=== PATIENT | male | born 1955 | race Caucasian/White ===

== ENCOUNTER 2024-07-13 08:18 | Inpatient (IN) | payer OTHER ==
[~2024-07-13] VITALS: Ht 177.8 cm; Wt 113.6 kg
[2024-07-13] VITALS (12 sets, daily range): BP systolic 107–123; BP diastolic 59–81; PULSE 95–149; RESP 19–30; TEMP 98–98.9; O2SAT 93–97
[2024-07-13] MEDS: SODIUM CHLORIDE 0.9% 1,000 ML IV ONE ×3 (09:00→11:56)
[2024-07-13] MEDS: ONDANSETRON HCL 4 MG/2 ML VIAL IV ONE (09:02)
[2024-07-13] MEDS: MORPHINE SULFATE 4 MG/ML SYR/VIAL IV ONE (09:03)
[2024-07-13 09:27] LABS: Urine Bacteria FEW /hpf (None Seen); Urine Blood 2+ /uL (Negative); Urine Clarity Clear (Clear); Urine Color Yellow (Yellow); Urine Mucus FEW (None Seen); Urine Protein, UAD 1+ (Negative); Urine Specific Gravity 1.031 (1.001-1.035); Urine Squamous Epithelial Cell FEW /hpf (<5); Urine Urobilinogen Normal (Negative); Urine WBC 3 /HPF (0-3); Urine pH 5.5 (5.0-9.0)
--- NOTE | 2024-07-13 09:31 | ED.PDOC ---
GI ASSESSMENT HPI Comments 69 y/o M, with PMHX of HTN presents to the ED for CC of abdominal pain. Patient states, that he has been experiencing abdominal pain with associated body-aches and tremors since 0500 this morning (07/13/24). Patient denies nausea, vomiting, diarrhea, melena, chills, fatigue, or weakness. No other associated symptoms, modifiers, recent injuries or sick contacts at this time. Chief Complaint: Abdominal Pain Time Seen by MD: 09:00 Reviewed Notes: Nurses Notes, Medications, Allergies Allergies: Uncoded Allergies: SULFA (Allergy, Unknown, 07/13/24) Information Source: Patient Mode of Arrival: Wheelchair Timing: Hours Duration: Since onset Prehospital treatment: None Quality: None Vomitus: None Stool: Normal Severity: Moderate Recent: None Recent Hx of: None Pain Location: RLQ Modifying Factors: Nothing Associated sign and symptoms: None Past Medical History PAST MEDICAL HISTORY: HTN Surgical History (Other): RIGHT KNEE Family History Family History: Unknown Social History Smoker: Non-Smoker Alcohol: Denies ETOH Use Drugs: Denies Drug Use Lives In: Home Constitutional: denies: chills, diaphoresis, fatigue, fever, malaise, sweats, weakness, others EENTM: denies: blurred vision, double vision, ear bleeding, ear discharge, ear drainage, ear pain, ear ringing, eye pain, eye redness, hearing loss, mouth pain, mouth swelling, nasal discharge, nose bleeding, nose congestion, nose pain, photophobia, tearing, throat pain, throat swelling, voice changes, others Respiratory: denies: cough, hemoptysis, orthopnea, SOB at rest, shortness of breath, SOB with excertion, stridor, wheezing, others Cardiovascular: denies: chest pain, dizzy spells, diaphoresis, Dyspnea on exertion, edema, irregular heart beat, left arm pain, lightheadedness, palpitations, PND, syncope, others Gastrointestinal: reports: abdominal pain; denies: abdomen distended, blood streaked bowels, constipated, diarrhea, dysphagia, difficulty swallowing, hematemesis, melena, nausea, poor appetite, poor fluid intake, rectal bleeding, rectal pain, vomiting, others Genitourinary: denies: burning, dysuria, flank pain, frequency, hematuria, incontinence, penile discharge, penile sore, pain, testicle pain, testicle swelling, urgency, others Neurological: reports: tremors; denies: dizziness, fainting, headache, left sided numbness, left sided weakness, numbness, paresthesia, pre-existing de ficit, right sided numbness, right sided weakness, seizure, speech problems, tingling, weakness, others Musculoskeletal: denies: back pain, gout, joint pain, joint swelling, muscle pain, muscle stiffness, neck pain, others Integumetry: denies: bruises, change in color, change in hair/nails, dryness, laceration, lesions, lumps, rash, wounds, others Allergic/Immunocompromised: denies: Difficulty Healing, Frequent Infections, Hives, Itching, others Hematologic/Lymphatic: denies: anemia, blood clots, easy bleeding, easy bruising, swollen glands, others Endocrine: denies: excessive hunger, excessive sweating, excessive thirst, excessive urination, flushing, intolerance to cold, intolerance to heat, unexplained weight gain, unexplained weight loss, others Psychiatric: denies: anxiety, bipolar disorder, depression, hopeless, panic disorder, schizophrenia, sleepless, suicidal, others All Other Systems: Reviewed and Negative Physical Exam General Appearance: Moderate Distress HEENT: Normal ENT Inspection, Pharynx Normal, TMs Normal Neck: Full Range of Motion, Non-Tender, Normal, Normal Inspection Respiratory: Chest Non-Tender, Lungs Clear, No Accessory Muscle Use, No Respiratory Distress, Normal Breath Sounds Cardiovascular: No Edema, No JVD, No Murmur, No Gallop, Normal Peripheral Pulses, Regular Rate/Rhythm Breast Exam: Deferred Gastrointestinal: Distended Genitalia: Deferred Pelvic: Deferred Rectal: Deferred Extremities: No calf tenderness, Normal range of motion, Non-tender Musculoskeletal : Apperance: Normal Neurologic: Alert, No Motor Deficits, No Sensory Deficits Cerebellar Function: NOT DONE Reflexes: NOT DONE Skin: Normal Color Peripheral Pulses: 3+ Radial (R), 3+ Radial (L) Lymphatic: No Adenopathy Was a procedure done? Was a procedure done?: No GI differential Dx Differential Diagnosis: Cholangitis, Cholecystitis, Constipation, Esophagitis, Gastritis/PUD, Gastroenteritis, Electrolyte Imbalance, Food Poisoning, Bacterial, Viral X-Ray, Labs, Meds, VS Vital Signs Date Time Temp Pulse Resp B/P (MAP) Pulse Ox O2 Delivery O2 Flow Rate FiO2 07/13/24 12:00 135 07/13/24 09:46 152 07/13/24 09:35 99.0 152 19 132/60 (84) 95 99.0 07/13/24 09:33 152 18 132/60 07/13/24 09:03 149 19 135/89 07/13/24 08:48 149 19 95 Room Air* 0 21 07/13/24 08:48 99.0 149 19 135/89 (104) 95 99.0 07/13/24 08:38 141 07/13/24 08:30 99.9 146 25 135/85 (102) 97 99.9 Lab Test 07/13/24 11:15 07/13/24 09:17 07/13/24 08:47 Range/Units Lactic Acid Level 1.7 0.4-2.0 mmol/L White Blood Count 7.7 4.4-10.8 10^3/uL Red Blood Count 5.61 4.5-5.90 10^6/uL Hemoglobin 17.1 13.5-17.5 g/dL Hematocrit 50.9 41.0-53.0 % Mean Corpuscular Volume 90.8 80.0-100.0 fL Mean Corpuscular Hemoglobin 30.4 28.0-32.0 pg Mean Corpuscular Hemoglobin Concent 33.5 32.0-36.0 g/dL Red Cell Distribution Width 14.5 H 11.8-14.3 % Platelet Count 149 140-450 10^3/uL Mean Platelet Volume 8.2 6.9-10.8 fL Neutrophils (%) (Auto) 88.7 H 37.0-80.0 % Lymphocytes (%) (Auto) 8.3 L 10.0-50.0 % Monocytes (%) (Auto) 2.4 0.0-12.0 % Eosinophils (%) (Auto) 0.1 0.0-7.0 % Basophils (%) (Auto) 0.5 0.0-2.0 % Neutrophils # (Auto) 6.9 1.6-8.6 10 ^3/uL Lymphocytes # (Auto) 0.6 0.4-5.4 10 ^3/uL Monocytes # (Auto) 0.2 0-1.3 10 ^3/uL Eosinophils # (Auto) 0 0-0.8 10 ^3/uL Basophils # (Auto) 0 0-0.2 10 ^3/uL Nucleated Red Blood Cells 0.1 % Sodium Level 140 136-145 mmol/L Potassium Level 4.5 3.5-5.1 mmol/L Chloride Level 105 98-107 mmol/L Carbon Dioxide Level 24 20-31 mmol/L Anion Gap 11 5-15 Blood Urea Nitrogen 24 H 9-23 mg/dL Creatinine 1.44 H 0.700-1.30 mg/dL Glomerular Filtration Rate Calc 53 >90 mL/min BUN/Creatinine Ratio 16.7 10.0-20.0 Serum Glucose 141 H 74-106 mg/dL Calcium Level 9.4 8.7-10.4 mg/dL Urine Color Yellow Yellow Urine Clarity Clear Clear Urine pH 5.5 5.0-9.0 Urine Specific [place] 1.031 1.001-1.035 Urine Protein 1+ H Negative Urine Ketones 1+ H Negative Urine Blood 2+ H Negative /uL Urine Nitrite Negative Negative Urine Bilirubin Negative Negative Urine Urobilinogen Normal Negative mg/dL Urine Leukocyte Esterase Negative Negative /uL Urine RBC 27 0 - 3 /hpf Urine Microscopic WBC 3 0-3 /HPF Urine Squamous Epithelial Cells Few <5 /hpf Urine Bacteria Few H None Seen /hpf Urine Mucus Few None Seen Urine Glucose Trace Normal mg/dL Current Medications Medications (Trade) Dose Ordered Sig/Danish Route Start Time Stop Time Status Last Admin Morphine Sulfate 4 mg ONCE ONCE IV 07/13/24 09:00 07/13/24 09:01 DC 07/13/24 09:03 Ondansetron HCl (Zofran) 4 mg ONCE ONCE IV 07/13/24 09:00 07/13/24 09:01 DC 07/13/24 09:02 Sodium Chloride 1,000 ml @ 1,000 mls/hr Q1H ONCE IV 07/13/24 09:00 07/13/24 09:59 DC 07/13/24 09:00 Ceftriaxone Sodium 50 ml @ 100 mls/hr ONCE ONCE IV 07/13/24 11:00 07/13/24 11:29 DC 07/13/24 11:26 Metronidazole 100 ml @ 100 mls/hr ONCE ONCE IV 07/13/24 11:00 07/13/24 11:59 DC 07/13/24 11:55 Sodium Chloride 1,000 ml @ 1,000 mls/hr Q1H ONCE IV 07/13/24 11:00 07/13/24 11:59 DC 07/13/24 11:24 Sodium Chloride 1,000 ml @ 150 mls/hr Q6H40M ONCE IV 07/13/24 11:00 07/13/24 17:39 07/13/24 11:56 Patient alert. Came in because of abdominal pain. Has ketones in his urine. Establish intravenous access. Was given fluids. Was given morphine. Was given Zofran. Continues to be tachycardic. Blood sugar elevated. Possible colitis. Was given Rocephin. Was given Flagyl. Reviewed his history. Explained to the patient. Continue cardiac monitoring. EKG reviewed does not show any acute changes. Time of 1ST Reevaluation: 09:30 Reevaluation 1ST: Unchanged Patient Education/Counseling: Diagnosis, Treatment Family Education/Counseling: No Family Present Departure 1 Departure Time of Disposition: 10:46 Impression: Primary Impression: Acute appendicitis Qualified Codes: K35.80 - Unspecified acute appendicitis Additional Impressions: Acute abdominal pain Dehydration Gastroenteritis Uncontrolled diabetes mellitus Qualified Codes: E13.65 - Other specified diabetes mellitus with hyperglycemia Disposition: ADMITTED INPATIENT Admit to: Med Surg Condition: Guarded Critical Care Note Critical Care Time?: Yes (45 min-critical care time only) Critical care comment: Tachycardia monitor fluids Stability Stability form required: No Heart Score Heart Score: Heart Score Response (Comments) Value History Slightly Suspicious 0 EKG Normal 0 Age >65 2 Risk Factors >3 or Hx ASHD 2 Troponin Normal limit 0 Total 4 I personally scribed for NASIMA GONCALVES MD ([email or web address]) on 07/13/24 at 09:31. Electronically submitted by Guerline Charlton ([email or web address]). NASIMA GONCALVES MD Jul 13, 2024 09:31
[2024-07-13 09:37] LABS: Basophils # (auto) 0 10 ^3/uL (0-0.2); Basophils % (auto) 0.5 % (0.0-2.0); Chloride 105 mmol/L (98-107); Eosinophils # (auto) 0 10 ^3/uL (0-0.8); Eosinophils % (auto) 0.1 % (0.0-7.0); Hematocrit 50.9 % (41.0-53.0); Hemoglobin 17.1 g/dL (13.5-17.5); Lymphocytes # (auto) 0.6 10 ^3/uL (0.4-5.4); Lymphocytes % (auto) 8.3 % (10.0-50.0); Mean Corpuscular Hemoglobin 30.4 pg (28.0-32.0); Mean Corpuscular Hgb Conc. 33.5 g/dL (32.0-36.0); Mean Corpuscular Volume 90.8 fL (80.0-100.0); Monocytes # (auto) 0.2 10 ^3/uL (0-1.3); Monocytes % (auto) 2.4 % (0.0-12.0); Neutrophils # (auto) 6.9 10 ^3/uL (1.6-8.6); Neutrophils % (auto) 88.7 % (37.0-80.0); Nucleated Red Blood Cells % 0.1 %; Platelet Count (auto) 149 10^3/uL (140-450); Potassium 4.5 mmol/L (3.5-5.1); Red Blood Cells 5.61 10^6/uL (4.5-5.90); Red Cell Distribution Width 14.5 % (11.8-14.3); Sodium 140 mmol/L (136-145); White Blood Cell 7.7 10^3/uL (4.4-10.8)
[2024-07-13 09:38] LABS: Anion Gap 11 (5-15); Calcium 9.4 mg/dL (8.7-10.4); Carbon Dioxide 24 mmol/L (20-31)
[2024-07-13 09:43] LABS: BUN/Creatinine Ratio 16.7 (10.0-20.0)
[2024-07-13 09:46] LABS: Blood Urea Nitrogen 24 mg/dL (9-23); Glucose 141 mg/dL (74-106)
[2024-07-13] MEDS: cefTRIAXone 1GM/50ML D5W 50 ML IV ONE (11:26)
[2024-07-13] MEDS: metroNIDAZOLE 500MG/100ML 100 ML IV ONE (11:55)
--- NOTE | 2024-07-13 11:57 | DVH ---
CT ABDOMEN AND PELVIS WITHOUT CONTRAST CLINICAL HISTORY: colitis TECHNIQUE: Multiple contiguous axial images of the abdomen and pelvis without intravenous contrast. T he images were reformatted degenerate coronal and sagittal reconstructions. All CT scans at this medical facility are performed using dose modulation techniques as appropriate t o a performed exam including the following:Automated exposure control was utilized; adjustment of the MA and/or KV according to patient size; and use of iterative reconstruction technique. Radiation Dose Information: CT Dose: CTDI volume is 24 mGy. Dose-length product is 1472 mGy*cm Comparison: None FINDINGS: Evaluation of the abdomen and pelvis is limited without intravenous contrast. There is a thickened fluid filled tubular structure in the right lower quadrant abdomen likely inflam ed appendix. There is moderate fat stranding in the right lower quadrant abdomen along with small alex unt of free fluid. Findings are compatible with acute appendicitis. There is no evidence of organized fluid collection or significant free air. The small and large bowel loops demonstrate normal caliber . There are diverticula in the distal colon without evidence of acute diverticulitis. The stomach ap pears within normal limits. There is an approximately 4.4 x 6.4 cm mildly heterogeneous solid-appearing lesion in the midpole of the right kidney. There are multiple bilateral renal cysts including a 5.8 cm left renal cyst with fe w septations. There is no evidence of nephrolithiasis or hydronephrosis. There is diffuse fatty infiltration of the liver. There is a 2.6 cm cyst in the caudate lobe. The ga llbladder pancreas, adrenal glands, and spleen appear within normal limits. There is no gross evide nce of abdominal lymphadenopathy. The abdominal aorta and IVC appear within normal limits. The prostate gland is mildly prominent in size. The bladder appears within normal limits for degree o f distention.. There is no gross evidence of a pelvic mass. There is no free fluid collection. Lung bases are clear. There is no acute osseous abnormality. IMPRESSION: 1. There are inflammatory changes and small amount of free fluid in the right lower quadrant abdomen. There is a thickened fluid-filled tubular structure in this area likely inflamed appendix. Findings are compatible with acute appendicitis. 2. Approximately 4.4 x 6.4 cm mildly heterogeneous solid-appearing lesion in the midpole of the right kidney. Renal malignancy is not excluded. Further evaluation with postcontrast CT or MR imaging is r ecommended. 3. Hepatic steatosis. 4. Multiple bilateral renal cysts including a 5.8 cm left renal cyst with few septations. 5. Mild prostatomegaly. Critical findings discussed with Dr. Churchill by Dr. Ted Washington via phone on 07/13/2024 11:54 AM. HS:Y
[2024-07-13] MEDS ORDERED: ROCURONIUM 10MG/ML 10ML VIAL IV ONE (12:53)
[2024-07-13] MEDS ORDERED: fentaNYL CITRATE 100 MCG/2 ML VL ONE ×2 (12:53→14:45)
[2024-07-13] MEDS ORDERED: PROPOFOL 10 MG/ML 20 ML IV ONE (12:53)
[2024-07-13] MEDS ORDERED: DexAMETHasone SOD PHOS 10MG/1ML VIAL INJ ONE (12:53)
[2024-07-13] MEDS ORDERED: MIDAZOLAM HCL 2MG/2ML 2ml VIAL (1mg/ml) ONE (12:53)
[2024-07-13] MEDS ORDERED: SODIUM CHLORIDE LOCK 10 ML ONE (12:53)
[2024-07-13] MEDS ORDERED: GLYCOPYRROLATE 0.2 MG/ML 1ML VIAL ONE (12:53)
[2024-07-13] MEDS ORDERED: LIDOCAINE 1% INJ PF 5ML AMP ONE (12:53)
[2024-07-13] MEDS ORDERED: NEOSTIGMINE 1 MG/ML INJ (10mg/10ML VIAL) ONE (12:53)
[2024-07-13] MEDS ORDERED: KETAMINE 50mg/ML 1ml syringe ONE (12:53)
[2024-07-13] MEDS ORDERED: LIDOCAINE 2% TOPICAL JELLY 5 ML URJT TOP ONE (12:53)
[2024-07-13] MEDS ORDERED: HYDROmorphone HCL 2 MG/ML VL/or syr ONE (12:53)
[2024-07-13] MEDS ORDERED: ONDANSETRON HCL 4 MG/2 ML VIAL ONE (12:53)
[2024-07-13] MEDS ORDERED: SODIUM CHLORIDE 0.9% 1,000 ML IV SCH (13:00)
[2024-07-13] MEDS ORDERED: MORPHINE SULFATE INJ 2 MG/ml SYRG IV PRN ×3 (13:00→17:30)
[2024-07-13] MEDS ORDERED: NITROGLYCERIN 0.4 MG SL TAB SL PRN (13:00)
[2024-07-13] MEDS ORDERED: HYDROmorphone HCL 2 MG/ML VL/or syr IV PRN ×3 (13:15→17:00)
[2024-07-13] MEDS ORDERED: MORPHINE SULFATE 4 MG/ML SYR/VIAL IV PRN ×3 (13:15→17:00)
[2024-07-13] MEDS ORDERED: HYDR-4902 PO (13:50)
--- NOTE | 2024-07-13 13:56 | DVH ---
CHEST RADIOGRAPH Indication: pain Technique: Single frontal view of the chest was obtained COMPARISON: None FINDINGS: Lines and Tubes: None Lungs: Bibasilar subsegmental atelectasis Pleura: No effusion. No pneumothorax. Cardiomediastinal contours: Unremarkable Bones: Unremarkable IMPRESSION: Bibasilar subsegmental atelectasis
[2024-07-13] MEDS ORDERED: PIPERACILLIN-TAZOB 3.375GM 100 ML IV SCH (14:00)
[2024-07-13] MEDS: HEPARIN SODIUM (PORCINE) 5000 UNITS/ML 1ML VIAL ONE (14:03)
[2024-07-13] MEDS: BUPIVACAINE HCL 0.25% P/F 10 ML VIAL ONE (14:31)
[2024-07-13] MEDS: LIDOCAINE 1% HCL (LOCAL ANESTH.) INJ 20ML MDV ONE (14:32)
[2024-07-13] MEDS: HEPARIN SODIUM (PORCINE) 5000 UNITS/ML 1ML VIAL SC ONE (14:42)
[2024-07-13] MEDS ORDERED: LISI10TA34 PO (14:50)
[2024-07-13] MEDS ORDERED: NAP500T PO (14:50)
--- NOTE | 2024-07-13 15:00 | DVHINCON2 ---
DATE OF CONSULTATION: 07/13/2024 REFERRING PHYSICIAN: Dr. Michael. CONSULTING PHYSICIAN: Walter Pruitt MD REASON FOR CONSULTATION: Acute appendicitis. HISTORY OF PRESENT ILLNESS: The patient is a 69-year-old male who came to the Emergency Department complaining of right lower quadrant abdominal pain since this morning. Denied fevers, chills, nausea, vomiting, hemoptysis, hematemesis, bilious emesis, chest pain, shortness of breath, unintentional weight loss, night sweats, melena or hematochezia. He has been experiencing tremors, which are essentially recent, in the last month. He stated he has experienced 4 episodes of tremors in the last month, which are self-limited. He thought it had something to do with this. PAST MEDICAL HISTORY: Significant for arthritis, obesity, hypertension. PAST SURGICAL HISTORY: Right knee tendon/ligament repair and tonsillectomy. Denies any abdominal surgeries. MEDICATIONS: Lisinopril. ALLERGIES: No known drug allergies. SOCIAL HISTORY: Denies smoking cigarettes, alcohol use, drug use, marijuana use or vaping. FAMILY HISTORY: Noncontributory. REVIEW OF SYSTEMS: NEURO: Negative. PSYCHIATRIC: Negative. ENDOCRINE: Negative. ENT: Negative. CARDIOVASCULAR: Negative. PULMONARY: Negative. GASTROINTESTINAL: As above. GENITOURINARY: Negative. HEME/ID: Negative. LYMPHATICS: Negative. MUSCULOSKELETAL: Negative. SKIN: Negative. PHYSICAL EXAMINATION: GENERAL: He is lying comfortably on a stretcher. He is calm, pleasant and in no distress. VITAL SIGNS: He is afebrile with stable vital signs with the exception of tachycardia with a heart rate in the 120s. NEUROLOGIC: Grossly intact, alert, awake, oriented x 3. HEAD, EARS, EYES, NOSE, AND THROAT: Normocephalic. Pupils equally round. Extraocular muscles intact. Trachea is midline. HEART: Tachycardic, normotensive. LUNGS: Effortless breathing. Normal oxygen saturation and respiratory rate. ABDOMEN: Soft, obese, nondistended with right lower quadrant tenderness. No peritoneal signs or rebound. Possible umbilical hernia. EXTREMITIES: No edema or tenderness. LABORATORY DATA: I reviewed his labs, demonstrated a white blood cell count of 7, hemoglobin 17, hematocrit 50, platelets 149. Sodium 140, potassium 4.5, chloride 105, CO2 is 24, BUN 24, creatinine 1.4. CT scan of the abdomen and pelvis reviewed with corresponding report. The patient has evidence of CAD as well as aortoiliac atherosclerosis and mild calcification of the aortic valve. Spleen is slightly enlarged. Umbilical hernia containing fat within the sac. Diverticulosis, without diverticulitis of the colon, particularly in the sigmoid region. A thickened appendix with periappendiceal stranding and free fluid in the right lower quadrant region. ASSESSMENT: A 69-year-old male with acute appendicitis. PLANS AND RECOMMENDATIONS: I had a lengthy discussion with the patient and recommended a laparoscopic, possible open appendectomy. The procedure, risks, benefits were explained in a detailed and extensive fashion. He was made aware of potential complications such as bleeding, infection, need for additional procedures, staple line failure/leak, injury to internal organs, blood vessels and/or nerves, chronic pain, numbness of the skin, future incisional hernia, small-bowel obstruction, blood clots in leg/lungs, heart attack, stroke and/or . All questions were answered. He understood and agreed to proceed. Thank you, Dr. Michael, for allowing me to participate in the care of your patient. We will proceed with surgical intervention as soon as possible. Postoperative course will be determined after surgery. MD REDD Lopez/NIC TID: [id number] RECEIPT: [id number]
--- NOTE | 2024-07-13 15:15 | DVHHP2 ---
Admitting Diagnosis: Acute Appendicitis History of Present Illness HPI Patient is a 69-year-old male who presented with right lower quadrant abdominal pain that been 1 day prior to admission. Patient notes the pain felt like he pulled a muscle. Patient presented to the ER and vitals were notable for sinus tachycardia to the 140s. Patient was under stress and appendicitis. Patient was urgently taken to the OR for appendectomy. Home Meds Reported Medications Naproxen (NAPROSYN TABLET) 500 Mg Tb, 1 TAB PO BID 07/13/24 Lisinopril (Lisinopril) 10 Mg Tab, 1 TAB PO DAILY 07/13/24 Past Medical History Cardiac: HTN Review of Systems Gastrointestinal: Abdominal Pain H&P Exam Vital Signs Vital Signs Date Time Temp Pulse Resp B/P (MAP) Pulse Ox O2 Delivery O2 Flow Rate FiO2 07/13/24 12:00 135 21 111/69 (83) 91 07/13/24 09:35 99.0 99.0 07/13/24 08:48 Room Air* 0 21 Labs/Xrays Labs Test 07/13/24 11:15 07/13/24 09:17 07/13/24 08:47 Range/Units Lactic Acid Level 1.7 0.4-2.0 mmol/L White Blood Count 7.7 4.4-10.8 10^3/uL Red Blood Count 5.61 4.5-5.90 10^6/uL Hemoglobin 17.1 13.5-17.5 g/dL Hematocrit 50.9 41.0-53.0 % Mean Corpuscular Volume 90.8 80.0-100.0 fL Mean Corpuscular Hemoglobin 30.4 28.0-32.0 pg Mean Corpuscular Hemoglobin Concent 33.5 32.0-36.0 g/dL Red Cell Distribution Width 14.5 H 11.8-14.3 % Platelet Count 149 140-450 10^3/uL Mean Platelet Volume 8.2 6.9-10.8 fL Neutrophils (%) (Auto) 88.7 H 37.0-80.0 % Lymphocytes (%) (Auto) 8.3 L 10.0-50.0 % Monocytes (%) (Auto) 2.4 0.0-12.0 % Eosinophils (%) (Auto) 0.1 0.0-7.0 % Basophils (%) (Auto) 0.5 0.0-2.0 % Neutrophils # (Auto) 6.9 1.6-8.6 10 ^3/uL Lymphocytes # (Auto) 0.6 0.4-5.4 10 ^3/uL Monocytes # (Auto) 0.2 0-1.3 10 ^3/uL Eosinophils # (Auto) 0 0-0.8 10 ^3/uL Basophils # (Auto) 0 0-0.2 10 ^3/uL Nucleated Red Blood Cells 0.1 % Sodium Level 140 136-145 mmol/L Potassium Level 4.5 3.5-5.1 mmol/L Chloride Level 105 98-107 mmol/L Carbon Dioxide Level 24 20-31 mmol/L Anion Gap 11 5-15 Blood Urea Nitrogen 24 H 9-23 mg/dL Creatinine 1.44 H 0.700-1.30 mg/dL Glomerular Filtration Rate Calc 53 >90 mL/min BUN/Creatinine Ratio 16.7 10.0-20.0 Serum Glucose 141 H 74-106 mg/dL Calcium Level 9.4 8.7-10.4 mg/dL Urine Color Yellow Yellow Urine Clarity Clear Clear Urine pH 5.5 5.0-9.0 Urine Specific [place] 1.031 1.001-1.035 Urine Protein 1+ H Negative Urine Ketones 1+ H Negative Urine Blood 2+ H Negative /uL Urine Nitrite Negative Negative Urine Bilirubin Negative Negative Urine Urobilinogen Normal Negative mg/dL Urine Leukocyte Esterase Negative Negative /uL Urine RBC 27 0 - 3 /hpf Urine Microscopic WBC 3 0-3 /HPF Urine Squamous Epithelial Cells Few <5 /hpf Urine Bacteria Few H None Seen /hpf Urine Mucus Few None Seen Urine Glucose Trace Normal mg/dL Assessment/Plan Primary Diagnosis 1. Acute Appendicitis 2. Sinus Tachycardia 3. ALIREZA likely due to VMN -General Surgery, Dr. Pruitt consulted -Patient taken to the OR for urgent appendectomy -Cardiology consulted for sinus tachycardia -Merrem as scheduled per JUN -Pain medications scheduled per JUN -N.p.o. -US renal ordered -Daily CBC and CMP -Protonix 40 mg p.o. daily -Lovenox 40 mg subcutaneous for DVT prophylaxis -Full code Plan discussed with: Patient KATELYNN REYNAGA DO Jul 13, 2024 15:15
--- NOTE | 2024-07-13 16:14 | DVH ---
CHEST RADIOGRAPH Indication: HYPOXIA Technique: Single frontal view of the chest was obtained COMPARISON: XY CHEST PORTABLE on DOS: 07/13/24 FINDINGS: Lines and Tubes: None Lungs: Bibasilar atelectasis Pleura: No effusion. No pneumothorax. Cardiomediastinal contours: Borderline cardiomegaly Bones: Unremarkable IMPRESSION: 1. Mild bibasilar atelectasis. No consolidation.
[2024-07-13 16:50] LABS: Base Excess -6.5 mmol/L (-2.0-3.0)
[2024-07-13 17:04] LABS: Hematocrit 47.1 % (41.0-53.0); Hemoglobin 15.6 g/dL (13.5-17.5); Mean Corpuscular Hemoglobin 29.9 pg (28.0-32.0); Mean Corpuscular Volume 90.5 fL (80.0-100.0); Platelet Count (auto) 152 10^3/uL (140-450); Red Blood Cells 5.21 10^6/uL (4.5-5.90); Red Cell Distribution Width 14.2 % (11.8-14.3); White Blood Cell 19.1 10^3/uL (4.4-10.8)
[2024-07-13 17:07] LABS: Basophils % (manual) 0 (0.0-2.0); Blast Cells 0; Eosinophils % (manual) 0 (0-7); Metamyelocytes % 0; Myelocytes % 0; Promyelocytes % 0; Reactive Lymphocytes 0
[2024-07-13] MEDS: HYDROmorphone HCL 2 MG/ML VL/or syr IV PRN (17:07)
[2024-07-13 17:14] LABS: Anion Gap 10 (5-15); Carbon Dioxide 22 mmol/L (20-31); Chloride 105 mmol/L (98-107); Sodium 137 mmol/L (136-145)
[2024-07-13 17:20] LABS: BUN/Creatinine Ratio 14.3 (10.0-20.0); Blood Urea Nitrogen 21 mg/dL (9-23); INR 1.18 (0.9-1.15); Partial Thromboplastin Time 31.4 SEC (24.5-34.5); Prothrombin Time 12.3 sec (9.3-11.8)
[2024-07-13 17:32] LABS: Calcium 8.6 mg/dL (8.7-10.4); Glucose 158 mg/dL (74-106)
[2024-07-13 17:33] LABS: Potassium 5.7 mmol/L (3.5-5.1)
[2024-07-13 17:40] LABS: Band Neutrophils % (manual) 18; Lymphocytes % (manual) 4 (10.0-50.0); Monocytes % (manual) 6 (0-12); Platelet Estimate Adequate
--- NOTE | 2024-07-13 17:58 | DVHOP ---
DATE OF SURGERY: 07/13/2024 PREOPERATIVE DIAGNOSIS: Acute appendicitis. POSTOPERATIVE DIAGNOSES: Severe peritonitis with perforated appendicitis with intra-abdominal abscess. PROCEDURES: Laparoscopic lysis of adhesions, drainage of intra-abdominal abscesses and partial cecectomy/appendectomy. SURGEON: Walter Pruitt MD DIRECTOR FAMILY: None. ANESTHESIOLOGIST: Dr. Sexton. ANESTHESIA: General by means of endotracheal intubation. INTRAOPERATIVE FINDINGS: * Severe peritonitis. * Severe inflammatory changes of the terminal ileum, appendix and cecum. * Purulent fluid in the right lower quadrant region and pelvic cul-de-sac. * Contained abscess in the severe inflammatory changes and adhesions involving the terminal ileum against the appendix, appendix is adherent to the right abdominal pelvic and posterior peritoneal wall. ESTIMATED BLOOD LOSS: Approximately 50 mL. INTRAVENOUS FLUIDS: Approximately 3 liters of crystalloids. URINE OUTPUT: Not recorded given Brambila catheter was not inserted. DRAINS: A 19 Jayy drain and quarter-inch Lawson drain. SPECIMENS: Cecum and appendix. COMPLICATIONS: None other than extremely difficult procedure adding complexity as well as time to an otherwise routine procedure secondary to above-mentioned intraoperative findings. Procedure well tolerated and transferred to recovery room in a critical condition. INDICATIONS FOR PROCEDURE: The patient is a 69-year-old male who came to the Emergency Department complaining of right lower quadrant abdominal pain since this morning. Upon examination, he was noted to have right lower quadrant tenderness, without diffuse peritoneal signs. He was tachycardic in the 120s. CT scan of the abdomen and pelvis reviewed, demonstrated acute inflammatory changes of the appendix with periappendiceal fluid. Based on the above-mentioned information, the patient was recommended to undergo an emergent laparoscopic, possible open appendectomy. The procedure, risks and benefits were explained in a detailed and extensive fashion. All of his questions were answered. He understood and agreed to proceed. DESCRIPTION OF PROCEDURE: The patient was taken to the operating room. He was placed in the dorsal decubitus position on the operating table. Once adequate anesthesia was achieved, the left arm was tucked to his side paying careful attention on providing adequate positioning as well as padding to prevent any potential injuries. The abdomen was then widely prepped and draped in the usual sterile fashion. My attention was directed towards the periumbilical region where local anesthesia consisting of 1% lidocaine/0.5% Marcaine was infiltrated. A Veress needle was inserted into the abdominal cavity while providing anterior abdominal retraction with the towel clamps. Pneumoperitoneum of 15 mmHg was achieved. At this time, my attention was directed towards the epigastric region, where a 12 mm trocar was placed. This trocar was placed with preemptive local anesthesia. A 5 mm 30-degree laparoscope was inserted into the abdominal cavity. A thorough survey of the abdominal cavity did not reveal any evidence of injury or bleeding upon entry. The Veress needle was removed under direct laparoscopic visualization. The peritoneal cavity demonstrated severe inflammatory changes consistent with peritonitis. There was sanguinopurulent fluid in the right lower quadrant region. My attention was directed towards the left side of the abdomen where 5 mm trocars x2 were placed using preemptive local anesthesia as well as under direct laparoscopic visualization. My attention was directed towards the right lower quadrant region where the omentum was retracted superiorly identifying severe inflammatory changes of the terminal ileum as well as the cecum. The appendix was not visualized. Thus, careful dissection of the terminal ileum revealed a perforated appendix with two sites of perforation, one at the mid distal aspect and another one in the base. The appendix was densely adhered to the abdominal pelvic sidewall laterally as well as posteriorly. The appendix was carefully dissected from the sidewall with EndoShears as well as [place] LigaSure. The cecum had to be mobilized by incising the white line of Toldt in order to proceed with a partial cecectomy as the patient had a perforation at the base of the appendix. Using an Atkinson 60 mm stapler with a blue cartridge, the cecum was divided using 4 cartridges obtaining an excellent staple line. The cecum was divided without incorporation of the terminal ileum or injury to any surrounding structures. The staple line was inspected. It was an excellent staple line. There was no evidence of bleeding or leakage. The specimen was placed in the EndoCatch bag and exteriorized via the epigastric trocar site. The 12 mm trocar was replaced. I dedicated my attention to inspect the right lower quadrant region. It was copiously irrigated with sterile saline solution. The fluid was evacuated. There was no evidence of active bleeding. A 19 Jayy drain was placed in the right lower quadrant region, specifically in the area of the staple line as well as the dissection plane of the cecum coursing caudally towards the pelvic cul-de-sac and exteriorized via the left lower quadrant trocar site. The drain was secured to the skin by means of 2-0 silk suture. At this time, the epigastric fascial defect was closed with a #1 Vicryl in a [id number] fashion using a Humberto-Chris device. This was done under laparoscopic visualization. The remaining laparoscopic equipment was removed from the patient as the pneumoperitoneum was evacuated. The wounds were washed and dried. The epigastric and remaining 5 mm trocar wounds were not closed. The [place] drain was placed in the subcutaneous space and secured to the skin by means of 2-0 silk sutures x2. The wounds were washed and dried. Sterile dressings were applied. The patient tolerated well procedure. There were no complications other than being extremely difficult procedure. He was successfully extubated in the operating room and transferred to recovery room in a critical condition. The patient will be then transferred to a step-down unit where we will monitor. MD REDD Lopez/MARLIN/NAPOLEON TID: [id number] RECEIPT: [id number] [facility]
[2024-07-13] MEDS: METOCLOPRAMIDE HCL 5MG/ml INJ 2ml VIAL IV ONE (18:57)
[2024-07-13] MEDS: KETOROLAC TROMETH 30 MG/ML 1ML VIAL IV ONE (18:57)
[2024-07-13] MEDS: ACCU-CHEK COMFORT CURVE STRIP VI ONE (18:58)
[2024-07-13] MEDS: InsuLIN REG 1unit/0.01ml Soln (100units/ml) IV ONE (19:02)
[2024-07-13] MEDS: SODIUM CHLORIDE 0.9% 1,000 ML IV SCH (19:03)
[2024-07-13] MEDS: DEXTROSE (50%) 50ML SYRG IV ONE (19:03)
[2024-07-13] MEDS: MEROPENEM 1GM IVPB 50 ML IV SCH (21:31)
--- NOTE | 2024-07-13 22:10 | DVHINCON2 ---
Date of service: Jul 13, 2024 Referring Physician Elie Michael DO Reason for Consultation Acute hypoxic respiratory failure, pulmonary edema, atelectasis. History of Present Illness A 69-year-old man with PMHx of hypertension, arthritis and obesity who presents to the ED today complaining of right lower quadrant abdominal pain with associated body aches and tremors since this morning. Denied fevers, chills, nausea, vomiting, hemoptysis, chest pain, shortness of breath, unintentional weight loss, etc. He has been experiencing tremors in the last month - reports 4 episodes of tremors in the last month, which were self-limiting. Patient was admitted for further care, and pulmonary consultation is requested for evaluation and management of acute hypoxic respiratory failure and pulmonary edema. Review of Systems: 14-point review of systems negative unless otherwise noted above. Past Medical History: Hypertension, arthritis and obesity Past Surgical History: Right knee tendon/ligament repair and tonsillectomy. Medications: Reviewed. Allergies: Sulfa Family History: Alcoholism Arthritis. Social History: Nonsmoker. No alcohol or illicit drug use. Family History: Alcoholism Arthritis G8 MOTHER, Onset:Unknown Allergies: Coded Allergies: Sulfa Antibiotics (Verified Allergy, Unknown, 07/14/24) Uncoded Allergies: SULFA (Allergy, Unknown, 07/13/24) Home Meds Reported Medications Naproxen (NAPROSYN TABLET) 500 Mg Tb, 1 TAB PO BID 07/13/24 Lisinopril (Lisinopril) 10 Mg Tab, 1 TAB PO DAILY 07/13/24 Current Medications Current Medications Medications (Trade) Dose Ordered Sig/Danish Route PRN Reason Start Time Stop Time Status Last Admin Sodium Chloride 1,000 ml @ 60 mls/hr [id number] IV 07/13/24 13:00 07/13/24 15:53 DC Nitroglycerin (Ntrostat Sublingual) 0.4 mg Q5MINP PRN SL FOR CHEST PAIN 07/13/24 13:00 Morphine Sulfate 2 mg Q30M PRN IV FOR CHEST PAIN 07/13/24 13:00 07/13/24 15:53 DC Piperacillin Sod/ Tazobactam Sod 100 ml @ 100 mls/hr Q8HR IV 07/13/24 14:00 07/13/24 15:53 DC Hydromorphone HCl (Dilaudid Injection) 0.5 mg Q10M PRN IV SEVERE PAIN (7-10 PAIN SCALE) 07/13/24 13:15 07/13/24 13:56 Cancel Morphine Sulfate 2 mg Q4H PRN IV BREAKTHRU PAIN SCALE 7-10 07/13/24 13:15 07/13/24 17:16 Cancel Hydromorphone HCl (Dilaudid Injection) 0.25 mg Q10M PRN IV MODERATE PAIN (4-6 PAIN SCALE) 07/13/24 13:15 07/13/24 13:46 Cancel Morphine Sulfate 1 mg Q30M PRN IV SEVERE PAIN (7-10 PAIN SCALE) 07/13/24 13:15 07/13/24 15:16 Cancel Sodium Chloride 1,000 ml @ 125 mls/hr Q8H IV 07/13/24 15:30 07/13/24 19:03 Morphine Sulfate 2 mg Q2HP PRN IV MODERATE PAIN (4-6 PAIN SCALE) 07/13/24 15:30 Morphine Sulfate 5 mg Q2HP PRN IV SEVERE PAIN (7-10 PAIN SCALE) 07/13/24 15:30 07/13/24 18:01 DC Meropenem 50 ml @ 17 mls/hr Q8HR IV 07/13/24 22:00 07/13/24 21:31 Pantoprazole Sodium (Protonix) 40 mg DAILY IV 07/14/24 10:00 Hydromorphone HCl (Dilaudid Injection) 0.5 mg Q10M PRN IV SEVERE PAIN (7-10 PAIN SCALE) 07/13/24 17:00 07/13/24 18:00 DC 07/13/24 17:07 Morphine Sulfate 2 mg Q4H PRN IV BREAKTHRU PAIN SCALE 7-10 07/13/24 17:00 07/13/24 21:01 DC Hydromorphone HCl (Dilaudid Injection) 0.25 mg Q10M PRN IV MODERATE PAIN (4-6 PAIN SCALE) 07/13/24 17:00 07/13/24 18:00 DC Morphine Sulfate 1 mg Q30M PRN IV SEVERE PAIN (7-10 PAIN SCALE) 07/13/24 17:30 07/13/24 19:01 DC Vital Signs Vital Signs Date Time Temp Pulse Resp B/P (MAP) Pulse Ox O2 Delivery O2 Flow Rate FiO2 07/13/24 21:41 96 23 123/65 (84) 97 07/13/24 20:40 98.0 98.0 07/13/24 20:00 Simple Mask* 9 90 Physical Exam Gen.: Patient lying in bed in no apparent distress. On CPAP Head: Normocephalic, atraumatic. Eyes: EOMI/PERRLA. Ears: Normal hearing. Normal anatomy. Neck/trachea: Trachea midline, supple. Nose: Normal external anatomy. Mouth: Moist mucous membranes. Chest: Decreased air entry bilaterally. No wheezing or rhonchi. Cardiovascular: Positive S1, positive S2. Regular rate and rhythm. Abdomen: Positive bowel sounds in all 4 quadrants. Soft, non-tender, non- distended. : Deferred. Rectal: Deferred. Skin: Warm, dry. Intact. Extremities: 2+ radial pulses bilaterally. No lower extremity edema. Neuro: Awake, alert, oriented x3. No gross motor or sensory deficits. Cranial nerves II through XII intact. Gait not assessed. Labs/Diagnostic Data Labs Test 07/13/24 21:58 07/13/24 18:47 07/13/24 16:43 07/13/24 16:38 Range/Units POC Glucose 177 H 70-106 mg/dl Blood Gas Specimen Type Arterial Blood Gas Sample Site Left radial Blood Gas Patient Temperature 37.0 Arterial Blood Date Drawn [id number] Arterial Blood pH 7.297 L 7.350-7.450 Arterial Blood Partial Pressure CO2 41.0 35.0-48.0 mmHg Arterial Blood Partial Pressure O2 97.0 83.0-108.0 mmHg Arterial Blood HCO3 19.6 L 21.0-28.0 mmol/L Arterial Blood Oxygen Saturation 96.6 94.0-98.0 % Arterial Blood Base Excess -6.5 L -2.0-3.0 mmol/L Arterial Blood Oxyhemoglobin 95.1 94.0-98.0 % Arterial Blood Carboxyhemoglobin 1.0 0.5-1.5 % Arterial Blood Methemoglobin 0.6 0.0-1.5 % Roberto Test Modified Blood Gas Total Hemoglobin 16.10 13.5-17.5 g/dL Blood Gas Modality Mask - cpap FiO2 % 50.0 Blood Gas PEEP or CPAP 8.0 White Blood Count 19.1 #H 4.4-10.8 10^3/uL Red Blood Count 5.21 4.5-5.90 10^6/uL Hemoglobin 15.6 13.5-17.5 g/dL Hematocrit 47.1 41.0-53.0 % Mean Corpuscular Volume 90.5 80.0-100.0 fL Mean Corpuscular Hemoglobin 29.9 28.0-32.0 pg Mean Corpuscular Hemoglobin Concent 33.0 32.0-36.0 g/dL Red Cell Distribution Width 14.2 11.8-14.3 % Platelet Count 152 140-450 10^3/uL Mean Platelet Volume 8.3 6.9-10.8 fL Neutrophils (%) (Auto) 37.0-80.0 % Lymphocytes (%) (Auto) 10.0-50.0 % Monocytes (%) (Auto) 0.0-12.0 % Basophils (%) (Auto) 0.0-2.0 % Neutrophils # (Auto) 1.6-8.6 10 ^3/uL Lymphocytes # (Auto) 0.4-5.4 10 ^3/uL Monocytes # (Auto) 0-1.3 10 ^3/uL Differential Total Cells Counted 100.0 100 Neutrophils % (Manual) 72 37.0-80.0 Band Neutrophils % (Manual) 18 Lymphocytes % (Manual) 4 L 10.0-50.0 Monocytes % (Manual) 6 0-12 Eosinophils % (Manual) 0 0-7 Basophils % (Manual) 0 0.0-2.0 Metamyelocytes % (manual) 0 Myelocytes % (Manual) 0 Promyelocytes % (Manual) 0 Blast Cells % (Manual) 0 Reactive Lymphocytes 0 Platelet Estimate Adequate Prothrombin Time 12.3 H 9.3-11.8 sec Prothrombin Time INR 1.18 H 0.9-1.15 Activated Partial Thromboplast Time 31.4 24.5-34.5 SEC Sodium Level 137 136-145 mmol/L Chloride Level 105 98-107 mmol/L Carbon Dioxide Level 22 20-31 mmol/L Anion Gap 10 5-15 Blood Urea Nitrogen 21 9-23 mg/dL Creatinine 1.47 H 0.700-1.30 mg/dL Glomerular Filtration Rate Calc 52 >90 mL/min BUN/Creatinine Ratio 14.3 10.0-20.0 Serum Glucose 158 H 74-106 mg/dL Calcium Level 8.6 L 8.7-10.4 mg/dL Magnesium Level 1.5 L 1.6-2.6 mg/dL Test 07/13/24 11:15 07/13/24 09:17 07/13/24 08:47 Range/Units Lactic Acid Level 1.7 0.4-2.0 mmol/L Eosinophils (%) (Auto) 0.1 0.0-7.0 % Eosinophils # (Auto) 0 0-0.8 10 ^3/uL Basophils # (Auto) 0 0-0.2 10 ^3/uL Nucleated Red Blood Cells 0.1 % Urine Color Yellow Yellow Urine Clarity Clear Clear Urine pH 5.5 5.0-9.0 Urine Specific [place] 1.031 1.001-1.035 Urine Protein 1+ H Negative Urine Ketones 1+ H Negative Urine Blood 2+ H Negative /uL Urine Nitrite Negative Negative Urine Bilirubin Negative Negative Urine Urobilinogen Normal Negative mg/dL Urine Leukocyte Esterase Negative Negative /uL Urine RBC 27 0 - 3 /hpf Urine Microscopic WBC 3 0-3 /HPF Urine Squamous Epithelial Cells Few <5 /hpf Urine Bacteria Few H None Seen /hpf Urine Mucus Few None Seen Urine Glucose Trace Normal mg/dL Assessment Impression: Acute hypoxic respiratory failure Pulmonary edema Appendicitis, s/p laparoscopic appendectomy Obesity, BMI 36.3 Atelectasis Hyperkalemia Plan: Start CPAP* with EPAP 8, FiO2 50% Titrate to keep O2 sats above 92%. Lasix 20 mg IVP x1 given Continue antibiotics Incentive spirometry Follow up cultures Monitor renal function. Monitor electrolytes. Supplement as necessary. Monitor ins and outs. Brambila for ins and outs. Monitor LEEANN output Surgery recommendations appreciated Pain control Avoid oversedation Diet and lifestyle modifications for weight reduction Obesity - complicates all care DVT prophylaxis - SCDs. Prognosis: Poor given patient's multiple co-morbidities. Condition: Critical Rest of plan per hospitalist and other consultants. A total of 35 minutes of critical care time was spent reviewing the patient record, examining the patient, making a diagnostic and therapeutic plan, discussing this plan with the medical personnel, following up on diagnostic studies and following the patient for clinical stability excluding any and all procedures. At least 50% of this time was spent in direct, [id number] contact. Thank you, Dr. Michael, for allowing me to participate in this patient's care. Further recommendations will depend on the patient's clinical course. Please do not hesitate to contact me if you have any questions or concerns. This medical document was created using an electronic medical record system with Reframe It dictation system. Although these documentations are being carefully reviewed, there may still be some phonetic and typographical changes. The errors are purely typographical, due to imperfection on the software program, and do not reflect any compromise in the patient's medical care. Plan discussed with: Patient, Other (FEDERICO Kinney/Dr. Michael) CARL PAYNE MD Jul 13, 2024 22:10
[2024-07-14] VITALS (19 sets, daily range): BP systolic 112–153; BP diastolic 71–94; PULSE 74–119; RESP 17–24; TEMP 97.9–99.4; O2SAT 92–95
[2024-07-14] MEDS: MORPHINE SULFATE INJ 2 MG/ml SYRG IV PRN
[2024-07-14 05:19] LABS: Basophils # (auto) 0 10 ^3/uL (0-0.2); Basophils % (auto) 0.2 % (0.0-2.0); Eosinophils # (auto) 0 10 ^3/uL (0-0.8); Hematocrit 44.4 % (41.0-53.0); Hemoglobin 15.1 g/dL (13.5-17.5); Lymphocytes # (auto) 0.7 10 ^3/uL (0.4-5.4); Lymphocytes % (auto) 4.8 % (10.0-50.0); Mean Corpuscular Hemoglobin 30.8 pg (28.0-32.0); Mean Corpuscular Volume 90.4 fL (80.0-100.0); Monocytes # (auto) 0.5 10 ^3/uL (0-1.3); Monocytes % (auto) 3.1 % (0.0-12.0); Neutrophils # (auto) 13.9 10 ^3/uL (1.6-8.6); Neutrophils % (auto) 91.9 % (37.0-80.0); Platelet Count (auto) 135 10^3/uL (140-450); Red Blood Cells 4.91 10^6/uL (4.5-5.90); Red Cell Distribution Width 14.1 % (11.8-14.3); White Blood Cell 15.1 10^3/uL (4.4-10.8)
[2024-07-14 05:40] LABS: Alanine Aminotransferase 14 U/L (7-40); Albumin 4.4 g/dL (3.2-4.8); Anion Gap 8 (5-15); Aspartate Aminotransferase 15 U/L (13-40); BUN/Creatinine Ratio 17.1 (10.0-20.0); Bilirubin, Total 0.6 mg/dL (0.2-1.0); Blood Urea Nitrogen 22 mg/dL (9-23); Carbon Dioxide 22 mmol/L (20-31); Potassium 4.5 mmol/L (3.5-5.1); Sodium 138 mmol/L (136-145); Total Protein 6.9 g/dL (5.7-8.2)
[2024-07-14 05:42] LABS: Alkaline Phosphatase 45 U/L (46-116); Chloride 108 mmol/L (98-107); Glucose 150 mg/dL (74-106)
--- NOTE | 2024-07-14 07:01 | DVHPN2 ---
Progress Note Date Seen: Jul 14, 2024 Has the PT tested + for MRSA If YES, has PT been informed?: No Medical Necessity Reason Pt with a Central, PICC or Fol: Yes The following are medically ne: Lopez Catheter Subjective Review of Systems Pt feels well. Denies N/V, pain, CP or SOB Objective vital signs Vital Sign Date Time Temp Pulse Resp B/P (MAP) Pulse Ox O2 Delivery O2 Flow Rate FiO2 07/14/24 06:40 99 23 123/79 (94) 95 07/14/24 04:40 97.9 97.9 07/13/24 22:34 Nasal Cannula* 3 32 Total Intake and Output 07/13/24 07/13/24 07/14/24 15:00 23:00 07:00 Intake Total 2250 ml 250 ml 925 ml Output Total 1205 ml 1070 ml Balance 2250 ml -955 ml -145 ml medications Current Medications Medications Dose Ordered Sig/Danish Route Start Time Stop Time Status Last Admin Dose Admin Nitroglycerin 0.4 mg Q5MINP PRN SL 07/13/24 13:00 Hydromorphone HCl 0.5 mg Q10M PRN IV 07/13/24 13:15 07/13/24 13:56 Cancel Morphine Sulfate 2 mg Q4H PRN IV 07/13/24 13:15 07/13/24 17:16 Cancel Hydromorphone HCl 0.25 mg Q10M PRN IV 07/13/24 13:15 07/13/24 13:46 Cancel Morphine Sulfate 1 mg Q30M PRN IV 07/13/24 13:15 07/13/24 15:16 Cancel Sodium Chloride 1,000 ml @ 125 mls/hr Q8H IV 07/13/24 15:30 07/14/24 03:57 125 MLS/HR Morphine Sulfate 2 mg Q2HP PRN IV 07/13/24 15:30 07/14/24 00:00 2 MG Meropenem 50 ml @ 17 mls/hr Q8HR IV 07/13/24 22:00 07/14/24 05:40 17 MLS/HR Pantoprazole Sodium 40 mg DAILY IV 07/14/24 10:00 Examination AFVSS X mild tachycardia. Abdomen soft, MO, ND and NT. Dressings in place. Drain with ss fluid laboratory and microbiology Laboratory Tests 07/14/24 04:15 Test 07/14/24 04:15 Range/Units Serum Glucose 150 H 74-106 mg/dL Labs and/or images reviewed: Labs reviewed by me Problem List/Assessment/Plan Problems(with codes): (1) Sepsis (2) Peritonitis (3) Peritoneal abscess (4) Acute appendicitis Problem List/Assessment/Plan Acute perforated appendicitis with abdominopelvic abscess, peritonitis and sepsis. S/P Laparoscopic drainage of intraabdominal abscess and partial cecectomy. Pt with underlying pulonary condition. Suspect sleep apnea. Continue NPO, reduce IVF rate, IV Abx, DVT and GI prophylaxis. Remove lopez catheter. Awaiting GI Fx. OOB and ambulation, PT and I/S. Pulmonaryfollow up, Cardio eval. Pending Echo. Continue supportive care. Plan discussed with: Patient, Other (RN) My Orders My Orders Orders - ELVER DAS MD Procedure Category Date Status Time Chest Portable XY 07/13/24 Resulted 13:28 Obtain Consent For: ORDERS 07/13/24 Transmitted 13:54 Obtain Consent For ELIZABETH 07/13/24 In Process Anesthesia 13:54 Transfer Orders XFER 07/13/24 Transmitted 15:19 Chest Portable XY 07/13/24 Resulted 15:36 Sodium Chloride 0.9% PHA 07/13/24 In Process 15:30 Morphine Sulfate PHA 07/13/24 In Process Injection 15:30 Meropenem 1gm Ivpb PHA 07/13/24 In Process (Merrem 1gm/ Ns) 22:00 Pantoprazole PHA 07/14/24 In Process (Protonix) 10:00 Incentive Spirometry ORDERS 07/13/24 Transmitted Q 1hr 15:23 Npo (Nothing By DIET 07/13/24 Transmitted Mouth) Diet Dinner Ambulate ELIZABETH 07/13/24 In Process 15:23 Pt Request For Service PT 07/13/24 Logged 15:23 *Consult CONS 07/13/24 Transmitted / 15:23 Sequential ELIZABETH 07/13/24 In Process Compression Device 15:23 * Cardiology Consult CONS 07/13/24 Transmitted 15:55 Communication Order ORDERS 07/13/24 Transmitted 15:55 Echo 2d Mode Cardiac US 07/13/24 Logged DOP 15:55 0.9% Ns 1000 Ml PHA 07/14/24 Verified 07:00 Enoxaparin Sodium PHA 07/14/24 Verified (Lovenox) 10:00 Complete Blood Count LAB 07/15/24 Verified 04:00 Basic Metabolic Panel LAB 07/15/24 Verified 04:00 ELVER DAS MD Jul 14, 2024 07:01
[2024-07-14] MEDS: SODIUM CHLORIDE 0.9% 1,000 ML IV SCH (08:30)
[2024-07-14] MEDS: ENOXAPARIN SOD 40 MG/0.4 ML SYRINGE SC SCH (10:00)
[2024-07-14] MEDS: PANTOPRAZOLE 40 MG/10 ML VIAL INJ IV SCH (10:06)
--- NOTE | 2024-07-14 16:30 | DVHPN2 ---
Progress Note - Dictate Date Seen: Jul 14, 2024 Has the PT tested + for MRSA If YES, has PT been informed?: No Medical Necessity Reason Pt with a Central, PICC or Fol: Yes The following are medically ne: Brambila Catheter vital signs Vital Sign Date Time Temp Pulse Resp B/P (MAP) Pulse Ox O2 Delivery O2 Flow Rate FiO2 07/14/24 13:00 98.6 95 20 145/86 (105) 93 98.6 07/14/24 08:00 Room Air* 0 21 Total Intake and Output 07/13/24 07/13/24 07/14/24 15:00 23:00 07:00 Intake Total 2250 ml 250 ml 1050 ml Output Total 1205 ml 1070 ml Balance 2250 ml -955 ml -20 ml medications Current Medications Medications Dose Ordered Sig/Danish Route Start Time Stop Time Status Last Admin Dose Admin Nitroglycerin 0.4 mg Q5MINP PRN SL 07/13/24 13:00 Hydromorphone HCl 0.5 mg Q10M PRN IV 07/13/24 13:15 07/13/24 13:56 Cancel Morphine Sulfate 2 mg Q4H PRN IV 07/13/24 13:15 07/13/24 17:16 Cancel Hydromorphone HCl 0.25 mg Q10M PRN IV 07/13/24 13:15 07/13/24 13:46 Cancel Morphine Sulfate 1 mg Q30M PRN IV 07/13/24 13:15 07/13/24 15:16 Cancel Morphine Sulfate 2 mg Q2HP PRN IV 07/13/24 15:30 07/14/24 10:09 2 MG Meropenem 50 ml @ 17 mls/hr Q8HR IV 07/13/24 22:00 07/14/24 15:30 17 MLS/HR Pantoprazole Sodium 40 mg DAILY IV 07/14/24 10:00 07/14/24 10:06 40 MG Sodium Chloride 1,000 ml @ 75 mls/hr [id number] IV 07/14/24 07:00 07/14/24 08:30 75 MLS/HR Enoxaparin Sodium 40 mg DAILY SC 07/14/24 10:00 07/14/24 14:00 40 MG objective General appearance: No acute distress Respiratory: Fine bibasilar crackles Cardiovascular: Regular rate and rhythm, no murmurs. No edema Abdomen: Soft, nondistended, nontender, bowel sounds present. Drains present. MSK: Normal range of motion. Neuro: Alert, no neurological deficits Psych: Appropriate mood and affect. laboratory and microbiology Laboratory Tests 07/14/24 04:15 Test 07/14/24 04:15 Range/Units Serum Glucose 150 H 74-106 mg/dL Assessment/Plan 1. Acute Perforated Appendicitis 2. Sinus Tachycardia 3. ALIREZA likely due to VMN -General Surgery, Dr. Pruitt consulted -Patient s/p appendectomy. -Cardiology consulted for sinus tachycardia, TTE pending -Merrem as scheduled per JUN -Pain medications scheduled per JUN -N.p.o. except ice chips. Diet to be advanced by Dr. Pruitt. -US renal ordered -Pulm consulted for CPAP -Daily CBC and CMP -Protonix 40 mg p.o. daily -Lovenox 40 mg subcutaneous for DVT prophylaxis -Full code Plan discussed with: Patient KATELYNN REYNAGA DO Jul 14, 2024 16:30
--- NOTE | 2024-07-14 18:09 | DVHSR ---
APPROVED REPORT EXAM: Two-dimensional and M-mode echocardiogram with Doppler and color Doppler. Blood Pressure: 123/79 mmHg INDICATION Heart Failure RISK FACTORS Height: 5'10", Weight: 253 DIMENSIONS LVDd4.9 (3.8-5.7cm)LA (2D)4.0 (1.9-4.0cm)Aortic Root3.5 (2.0-3.7cm) LVDs3.7 (2.5-4.0cm)LA (MM) (1.9-4.0cm)Aortic Cusp Exc1.9 (1.5-2.0cm) EF (%) 50.0 (55-70%)Rt. Atrium (1.9-4.0cm)Asc. Aorta cm IVSd1.0 (0.7-1.1cm)RV (D) (1.8-2.4cm) PWd1.0 (0.7-1.1cm) Mitral Valve MitralMitral Stenosis E wave0.70m/sMV Mean GR.mmHg A wave0.73m/sMV Peak GR.mmHg E/A ratio1.02D MVAcm2 DECEL [id number] 1/2 Timems Aortic Valve Aortic ValveAortic Stenosis V10.93m/Ana María Mean GR.3mmHg V21.25m/Ana María Peak GR.6mmHg LVOT Diameter2.5 (1.8-2.4cm)Doppler AVA3.65cm2 Pulmonic Valve V21.02m/s Other Information Quality : Technically LimitedRhythm : Technically limited study due to body habitus. Conclusion Sinus rhythm. Left atrial enlargement. The mitral aortic and tricuspid are structurally normal. The pulmonic is normal. Left ventricular systolic performance is preserved at 60% with normal RV function. There is mild tricuspid regurgitation. No pericardial effusion masses or vegetations discernible.
--- NOTE | 2024-07-14 18:47 | ECG ---
[facility] Test Date: 2024-07-13 Test Time: 08:38:21 Pat Name: NOREEN SCHULTZ Department: ER Room: 0249T A Gender: M Benefits Specialist: EDUARDO : [id number] Requested By: EMERGENCY EMERGENCY Order Number: [id number] Reading MD: Roshan Ortiz Measurements Intervals [place] Rate: 141 P: 62 UT: 140 QRS: -51 QRSD: 91 T: 64 QT: 281 QTc: 431 Interpretive Statements Sinus tachycardia Abnormal R-wave progression, late transition Inferior infarct, old Electronically Signed On 07-15-2024 14:01:47 PDT by Roshan Ortiz Please click the below link to view image of tracing.
--- NOTE | 2024-07-14 23:20 | DVHPN2 ---
Progress Note - Dictate Date Seen: Jul 14, 2024 Has the PT tested + for MRSA If YES, has PT been informed?: No Medical Necessity Reason Pt with a Central, PICC or Fol: Yes The following are medically ne: Lopez Catheter Reason for lopez catheter: Strict I&O Subjective Patient seen and examined at bedside. Breathing comfortably on room air. Overnight events reviewed. vital signs Vital Sign Date Time Temp Pulse Resp B/P (MAP) Pulse Ox O2 Delivery O2 Flow Rate FiO2 07/14/24 22:24 74 20 153/94 07/14/24 21:00 98.3 94 98.3 07/14/24 08:00 Room Air* 0 21 Total Intake and Output 07/13/24 07/13/24 07/14/24 15:00 23:00 07:00 Intake Total 2250 ml 250 ml 1050 ml Output Total 1205 ml 1070 ml Balance 2250 ml -955 ml -20 ml medications Current Medications Medications Dose Ordered Sig/Danish Route Start Time Stop Time Status Last Admin Dose Admin Nitroglycerin 0.4 mg Q5MINP PRN SL 07/13/24 13:00 Hydromorphone HCl 0.5 mg Q10M PRN IV 07/13/24 13:15 07/13/24 13:56 Cancel Morphine Sulfate 2 mg Q4H PRN IV 07/13/24 13:15 07/13/24 17:16 Cancel Hydromorphone HCl 0.25 mg Q10M PRN IV 07/13/24 13:15 07/13/24 13:46 Cancel Morphine Sulfate 1 mg Q30M PRN IV 07/13/24 13:15 07/13/24 15:16 Cancel Morphine Sulfate 2 mg Q2HP PRN IV 07/13/24 15:30 07/14/24 22:24 2 MG Meropenem 50 ml @ 17 mls/hr Q8HR IV 07/13/24 22:00 07/14/24 22:24 17 MLS/HR Pantoprazole Sodium 40 mg DAILY IV 07/14/24 10:00 07/14/24 10:06 40 MG Sodium Chloride 1,000 ml @ 75 mls/hr [id number] IV 07/14/24 07:00 07/14/24 08:30 75 MLS/HR Enoxaparin Sodium 40 mg DAILY SC 07/14/24 10:00 07/14/24 14:00 40 MG objective Gen.: Patient lying in bed in no apparent distress. On room air. Head: Normocephalic, atraumatic. Eyes: EOMI/PERRLA. Ears: Normal hearing. Normal anatomy. Neck/trachea: Trachea midline, supple. Nose: Normal external anatomy. Mouth: Moist mucous membranes. Chest: Decreased air entry bilaterally. No wheezing or rhonchi. Cardiovascular: Positive S1, positive S2. Regular rate and rhythm. Abdomen: Positive bowel sounds in all 4 quadrants. Soft, non-tender, non- distended. : Deferred. Rectal: Deferred. Skin: Warm, dry. Intact. Extremities: 2+ radial pulses bilaterally. No lower extremity edema. Neuro: Awake, alert, oriented x3. No gross motor or sensory deficits. Cranial nerves II through XII intact. Gait not assessed. laboratory and microbiology Laboratory Tests 07/14/24 04:15 Test 07/14/24 04:15 Range/Units Serum Glucose 150 H 74-106 mg/dL Assessment/Plan Impression: Acute hypoxic respiratory failure Pulmonary edema Appendicitis, s/p laparoscopic appendectomy Obesity, BMI 36.3 Atelectasis Hyperkalemia Events: Breathing on room air. Supplemental oxygen PRN. CPAP at nighttime Continue antibiotics Incentive spirometry WBC trending down - currently 15.1. Blood cultures show no growth x24 hours Monitor LEEANN output Labs and imaging reviewed. Rest of plan as noted below. Plan: Supplemental oxygen PRN. Titrate to keep O2 sats above 92%. Lasix 20 mg IVP x1 given on 07/13 Continue antibiotics Incentive spirometry Follow up cultures Monitor renal function. Monitor electrolytes. Supplement as necessary. Monitor ins and outs. Lopez for ins and outs. Monitor LEEANN output Surgery recommendations appreciated Pain control Avoid oversedation Diet and lifestyle modifications for weight reduction Obesity - complicates all care DVT prophylaxis - SCDs. Prognosis: Poor given patient's multiple co-morbidities. Rest of plan per hospitalist and other consultants. Thank you, Dr. Michael, for allowing me to participate in this patient's care. Further recommendations will depend on the patient's clinical course. Please do not hesitate to contact me if you have any questions or concerns. This medical document was created using an electronic medical record system with [employer] dictation system. Although these documentations are being carefully reviewed, there may still be some phonetic and typographical changes. The errors are purely typographical, due to imperfection on the software program, and do not reflect any compromise in the patient's medical care. Plan discussed with: Patient, Other (FEDERICO Llanos) CARL PAYNE MD Jul 14, 2024 23:20
[2024-07-15] VITALS (8 sets, daily range): BP systolic 127–163; BP diastolic 80–96; PULSE 59–125; RESP 17–20; TEMP 97.6–99.7; O2SAT 92–95
[2024-07-15] MEDS: dilTIAZem 25 MG/5 ML VIAL IV ONE ×2 (03:31→12:15)
--- NOTE | 2024-07-15 06:20 | DVHPN2 ---
Progress Note Date Seen: Jul 15, 2024 Has the PT tested + for MRSA If YES, has PT been informed?: No Medical Necessity Reason Pt with a Central, PICC or Fol: No Subjective Review of Systems Pt feeling well. Admits to passing flatus but mostly burping. Denies N/V. Very minimal pain Objective vital signs Vital Sign Date Time Temp Pulse Resp B/P (MAP) Pulse Ox O2 Delivery O2 Flow Rate FiO2 07/15/24 05:00 99.7 66 18 163/82 (109) 92 99.7 07/14/24 20:00 Room Air* 0 21 Total Intake and Output 07/14/24 07/14/24 07/15/24 15:00 23:00 07:00 Intake Total 450 ml 50 ml Output Total 875 ml Balance -425 ml 50 ml medications Current Medications Medications Dose Ordered Sig/Danish Route Start Time Stop Time Status Last Admin Dose Admin Nitroglycerin 0.4 mg Q5MINP PRN SL 07/13/24 13:00 Hydromorphone HCl 0.5 mg Q10M PRN IV 07/13/24 13:15 07/13/24 13:56 Cancel Morphine Sulfate 2 mg Q4H PRN IV 07/13/24 13:15 07/13/24 17:16 Cancel Hydromorphone HCl 0.25 mg Q10M PRN IV 07/13/24 13:15 07/13/24 13:46 Cancel Morphine Sulfate 1 mg Q30M PRN IV 07/13/24 13:15 07/13/24 15:16 Cancel Morphine Sulfate 2 mg Q2HP PRN IV 07/13/24 15:30 07/15/24 01:30 2 MG Meropenem 50 ml @ 17 mls/hr Q8HR IV 07/13/24 22:00 07/15/24 06:01 17 MLS/HR Pantoprazole Sodium 40 mg DAILY IV 07/14/24 10:00 07/14/24 10:06 40 MG Sodium Chloride 1,000 ml @ 75 mls/hr [id number] IV 07/14/24 07:00 07/14/24 08:30 75 MLS/HR Enoxaparin Sodium 40 mg DAILY SC 07/14/24 10:00 07/14/24 14:00 40 MG Examination AFVSS. Abdomen soft, Distended and NT. Dressings C/D?I. Drain with SS fluid. WBC 19-> 15. yesterday. Pending labs today. Echo results reviewed. laboratory and microbiology Laboratory Tests 07/14/24 04:15 Test 07/14/24 04:15 Range/Units Serum Glucose 150 H 74-106 mg/dL Microbiology Date/Time Source Procedure Growth Status 07/13/24 11:15 Blood Blood Culture - Preliminary NO GROWTH AFTER 24 HOURS OF INCUBATION. Resulted Labs and/or images reviewed: Labs reviewed by me, Image(s) reviewed by me Problem List/Assessment/Plan Problems(with codes): (1) Acute appendicitis (2) Sepsis (3) Peritoneal abscess (4) Peritonitis Problem List/Assessment/Plan Acute perforated appendicitis with abdominopelvic abscess, peritonitis and sepsis. S/P Laparoscopic drainage of intraabdominal abscess and partial cecectomy. Continue IV Abx. Pt with underlying pulmonary condition. Suspect sleep apnea. Pulmonary medicine following. Ileus- Continue NPO, Change IVF to D5 1/2 w 20 mEq KCl, DVT and GI prophylaxis. Awaiting GI Fx. OOB and ambulation, PT and I/S. Pending Cardio eval.Echo essentially normal. Continue supportive care. Plan discussed with: Patient My Orders My Orders Orders - ELVER DAS MD Procedure Category Date Status Time Sodium Chloride 0.9% PHA 07/14/24 In Process 07:00 Enoxaparin Sodium PHA 07/14/24 In Process (Lovenox) 10:00 Complete Blood Count LAB 07/15/24 Logged 04:00 Basic Metabolic Panel LAB 07/15/24 Logged 04:00 Discontinue Brambila ELIZABETH 07/14/24 In Process Catheter 06:56 Communication Order ORDERS 07/14/24 Transmitted 11:09 Communication Order ORDERS 07/14/24 Transmitted 11:33 Basic Metabolic Panel LAB 07/16/24 Verified 04:00 Magnesium LAB 07/16/24 Verified 04:00 ELVER DAS MD Jul 15, 2024 06:20
[2024-07-15 06:47] LABS: Potassium 4.4 mmol/L (3.5-5.1); Sodium 138 mmol/L (136-145)
[2024-07-15 06:48] LABS: Anion Gap 11 (5-15); Calcium 9.2 mg/dL (8.7-10.4)
[2024-07-15 06:53] LABS: Carbon Dioxide 19 mmol/L (20-31); Chloride 108 mmol/L (98-107)
--- NOTE | 2024-07-15 06:55 | DVHPN2 ---
Progress Note Date Seen: Jul 15, 2024 Has the PT tested + for MRSA If YES, has PT been informed?: No Medical Necessity Reason Pt with a Central, PICC or Fol: No Subjective Patient reports: No new complaints Review of Systems: CVS:Normal, RESPIRATORY:Normal, GI:Abnormal Objective vital signs Vital Sign Date Time Temp Pulse Resp B/P (MAP) Pulse Ox O2 Delivery O2 Flow Rate FiO2 07/15/24 05:00 99.7 66 18 163/82 (109) 92 99.7 07/14/24 20:00 Room Air* 0 21 Total Intake and Output 07/14/24 07/14/24 07/15/24 15:00 23:00 07:00 Intake Total 450 ml 600 ml Output Total 875 ml 865 ml Balance -425 ml -265 ml medications Current Medications Medications Dose Ordered Sig/Danish Route Start Time Stop Time Status Last Admin Dose Admin Nitroglycerin 0.4 mg Q5MINP PRN SL 07/13/24 13:00 Hydromorphone HCl 0.5 mg Q10M PRN IV 07/13/24 13:15 07/13/24 13:56 Cancel Morphine Sulfate 2 mg Q4H PRN IV 07/13/24 13:15 07/13/24 17:16 Cancel Hydromorphone HCl 0.25 mg Q10M PRN IV 07/13/24 13:15 07/13/24 13:46 Cancel Morphine Sulfate 1 mg Q30M PRN IV 07/13/24 13:15 07/13/24 15:16 Cancel Morphine Sulfate 2 mg Q2HP PRN IV 07/13/24 15:30 07/15/24 01:30 2 MG Meropenem 50 ml @ 17 mls/hr Q8HR IV 07/13/24 22:00 07/15/24 06:01 17 MLS/HR Pantoprazole Sodium 40 mg DAILY IV 07/14/24 10:00 07/14/24 10:06 40 MG Sodium Chloride 1,000 ml @ 75 mls/hr [id number] IV 07/14/24 07:00 07/14/24 08:30 75 MLS/HR Enoxaparin Sodium 40 mg DAILY SC 07/14/24 10:00 07/14/24 14:00 40 MG Examination: GENERAL:Normal, LUNGS:Normal, CVS:Normal, ABDOMEN:Normal laboratory and microbiology Test 07/15/24 06:13 Range/Units Serum Glucose Pending Problem List/Assessment/Plan Problem List/Assessment/Plan 1) Perforated appendicitis s/p cecectomy 2) Peritonitis plan; NPO, awaiting bowel fxn, continue IV Abx, IVF hydration, general surgery on board, dc planning home once cleared by surgery and tolerating diet, daily labs, guarded, will follow along medically Plan discussed with: Other (n) MARTHA FERNANDEZ MD Jul 15, 2024 06:55
[2024-07-15 06:56] LABS: Blood Urea Nitrogen 24 mg/dL (9-23); Glucose 112 mg/dL (74-106)
[2024-07-15 06:57] LABS: Basophils # (auto) 0 10 ^3/uL (0-0.2); Basophils % (auto) 0.2 % (0.0-2.0); Eosinophils # (auto) 0 10 ^3/uL (0-0.8); Eosinophils % (auto) 0.1 % (0.0-7.0); Hematocrit 48.3 % (41.0-53.0); Hemoglobin 16.6 g/dL (13.5-17.5); Lymphocytes # (auto) 1.1 10 ^3/uL (0.4-5.4); Lymphocytes % (auto) 7.5 % (10.0-50.0); Mean Corpuscular Hemoglobin 30.8 pg (28.0-32.0); Mean Corpuscular Hgb Conc. 34.3 g/dL (32.0-36.0); Mean Corpuscular Volume 89.8 fL (80.0-100.0); Monocytes # (auto) 0.9 10 ^3/uL (0-1.3); Neutrophils # (auto) 12.9 10 ^3/uL (1.6-8.6); Neutrophils % (auto) 86.2 % (37.0-80.0); Nucleated Red Blood Cells % 0.1 %; Platelet Count (auto) 210 10^3/uL (140-450); Red Blood Cells 5.38 10^6/uL (4.5-5.90); Red Cell Distribution Width 14.3 % (11.8-14.3)
[2024-07-15] MEDS: AMIODARONE BOLUS KIT 100 ML IV ONE (14:32)
[2024-07-15] MEDS: AMIODARONE 360mg/200mL PREMIX 200 ML IV ONE (15:02)
[2024-07-15] MEDS: D5W/SOD CHL 0.45% 1,000 ML IV SCH (18:25)
[2024-07-15] MEDS: AMIODARONE 360mg/200mL PREMIX 200 ML IV SCH (22:24)
--- NOTE | 2024-07-15 22:32 | DVHINCON2 ---
Date of service: Jul 15, 2024 Referring Physician Blayne Reason for Consultation SVT History of Present Illness This is a 69 year old yariel with a PMH of HTN who presented to the ED on 07/13 with complaints of abdominal pain. Patient reported associated body-aches and tremors. Admitting labs: PT 12.3, INR 1.18. CT ABD PEL dated 07/13: there are inflammatory changes and small amount of free fluid in the right lower quadrant abdomen, inflamed appendix, findings are compatible with acute appendicitis. Approximately 4.4 x 6.4 cm mildly heterogeneous solid-appearing lesion in the midpole of the right kidney. Hepatic steatosis. Multiple bilateral renal cysts including a 5.8 cm left renal cyst with few septations. Mild prostatomegaly. Patient was admitted to the hospital. Patient underwent appendectomy. Patient developed SVT, therefore I was asked to consult on this patient. Family History: Alcoholism Arthritis G8 MOTHER, Onset:Unknown Allergies: Coded Allergies: Sulfa Antibiotics (Verified Allergy, Unknown, 07/14/24) Uncoded Allergies: SULFA (Allergy, Unknown, 07/13/24) Home Meds Reported Medications Naproxen (NAPROSYN TABLET) 500 Mg Tb, 1 TAB PO BID 07/13/24 Lisinopril (Lisinopril) 10 Mg Tab, 1 TAB PO DAILY 07/13/24 Review of Systems Constitutional: denies: chills, diaphoresis, fatigue, fever, malaise, sweats, weakness, others EENTM: denies: blurred vision, double vision, ear bleeding, ear discharge, ear drainage, ear pain, ear ringing, eye pain, eye redness, hearing loss, mouth pain, mouth swelling, nasal discharge, nose bleeding, nose congestion, nose pain, photophobia, tearing, throat pain, throat swelling, voice changes, others Respiratory: denies: cough, hemoptysis, orthopnea, SOB at rest, shortness of breath, SOB with excertion, stridor, wheezing, others Cardiovascular: denies: chest pain, dizzy spells, diaphoresis, Dyspnea on exertion, edema, irregular heart beat, left arm pain, lightheadedness, palpitations, PND, syncope, others Gastrointestinal: reports: abdominal pain; denies: abdomen distended, blood streaked bowels, constipated, diarrhea, dysphagia, difficulty swallowing, hematemesis, melena, nausea, poor appetite, poor fluid intake, rectal bleeding, rectal pain, vomiting, others Genitourinary: denies: burning, dysuria, flank pain, frequency, hematuria, incontinence, penile discharge, penile sore, pain, testicle pain, testicle swelling, urgency, others Neurological: reports: tremors; denies: dizziness, fainting, headache, left sided numbness, left sided weakness, numbness, paresthesia, pre-existing deficit, right sided numbness, right sided weakness, seizure, speech problems, tingling, weakness, others Musculoskeletal: denies: back pain, gout, joint pain, joint swelling, muscle pain, muscle stiffness, neck pain, others Integumetry: denies: bruises, change in color, change in hair/nails, dryness, laceration, lesions, lumps, rash, wounds, others Allergic/Immunocompromised: denies: Difficulty Healing, Frequent Infections, Hives, Itching, others Hematologic/Lymphatic: denies: anemia, blood clots, easy bleeding, easy bruising, swollen glands, others Endocrine: denies: excessive hunger, excessive sweating, excessive thirst, excessive urination, flushing, intolerance to cold, intolerance to heat, unexplained weight gain, unexplained weight loss, others Psychiatric: denies: anxiety, bipolar disorder, depression, hopeless, panic disorder, schizophrenia, sleepless, suicidal, others All Other Systems: Reviewed and Negative Vital Signs Vital Signs Date Time Temp Pulse Resp B/P (MAP) Pulse Ox O2 Delivery O2 Flow Rate FiO2 07/15/24 10:10 120 16 160/90 07/15/24 08:30 97.9 93 97.9 07/14/24 20:00 Room Air* 0 21 Physical Exam GENERAL: Awake, alert, oriented. LUNGS: Clear. CARDIOVASCULAR: Heart sounds are good. ABDOMEN: Soft. Labs/Diagnostic Data Labs Test 07/15/24 06:13 07/14/24 04:15 07/13/24 18:47 07/13/24 16:43 Range/Units White Blood Count 15.0 H 4.4-10.8 10^3/uL Red Blood Count 5.38 4.5-5.90 10^6/uL Hemoglobin 16.6 13.5-17.5 g/dL Hematocrit 48.3 41.0-53.0 % Mean Corpuscular Volume 89.8 80.0-100.0 fL Mean Corpuscular Hemoglobin 30.8 28.0-32.0 pg Mean Corpuscular Hemoglobin Concent 34.3 32.0-36.0 g/dL Red Cell Distribution Width 14.3 11.8-14.3 % Platelet Count 210 # 140-450 10^3/uL Mean Platelet Volume 8.5 6.9-10.8 fL Neutrophils (%) (Auto) 86.2 H 37.0-80.0 % Lymphocytes (%) (Auto) 7.5 L 10.0-50.0 % Monocytes (%) (Auto) 6.0 0.0-12.0 % Eosinophils (%) (Auto) 0.1 0.0-7.0 % Basophils (%) (Auto) 0.2 0.0-2.0 % Neutrophils # (Auto) 12.9 H 1.6-8.6 10 ^3/uL Lymphocytes # (Auto) 1.1 0.4-5.4 10 ^3/uL Monocytes # (Auto) 0.9 0-1.3 10 ^3/uL Eosinophils # (Auto) 0 0-0.8 10 ^3/uL Basophils # (Auto) 0 0-0.2 10 ^3/uL Nucleated Red Blood Cells 0.1 % Sodium Level 138 136-145 mmol/L Potassium Level 4.4 3.5-5.1 mmol/L Chloride Level 108 H 98-107 mmol/L Carbon Dioxide Level 19 L 20-31 mmol/L Anion Gap 11 5-15 Blood Urea Nitrogen 24 H 9-23 mg/dL Creatinine 1.20 0.700-1.30 mg/dL Glomerular Filtration Rate Calc 66 >90 mL/min BUN/Creatinine Ratio 20.0 10.0-20.0 Serum Glucose 112 H 74-106 mg/dL Calcium Level 9.2 8.7-10.4 mg/dL Magnesium Level 1.9 1.6-2.6 mg/dL Total Bilirubin 0.6 0.2-1.0 mg/dL Aspartate Amino Transferase (AST) 15 13-40 U/L Alanine Aminotransferase (ALT) 14 7-40 U/L Alkaline Phosphatase 45 L 46-116 U/L Total Protein 6.9 5.7-8.2 g/dL Albumin 4.4 3.2-4.8 g/dL POC Glucose 177 H 70-106 mg/dl Blood Gas Specimen Type Arterial Blood Gas Sample Site Left radial Blood Gas Patient Temperature 37.0 Arterial Blood Date Drawn [id number] Arterial Blood pH 7.297 L 7.350-7.450 Arterial Blood Partial Pressure CO2 41.0 35.0-48.0 mmHg Arterial Blood Partial Pressure O2 97.0 83.0-108.0 mmHg Arterial Blood HCO3 19.6 L 21.0-28.0 mmol/L Arterial Blood Oxygen Saturation 96.6 94.0-98.0 % Arterial Blood Base Excess -6.5 L -2.0-3.0 mmol/L Arterial Blood Oxyhemoglobin 95.1 94.0-98.0 % Arterial Blood Carboxyhemoglobin 1.0 0.5-1.5 % Arterial Blood Methemoglobin 0.6 0.0-1.5 % Roberto Test Modified Blood Gas Total Hemoglobin 16.10 13.5-17.5 g/dL Blood Gas Modality Mask - cpap FiO2 % 50.0 Blood Gas PEEP or CPAP 8.0 Test 07/13/24 16:38 07/13/24 11:15 07/13/24 08:47 Range/Units Differential Total Cells Counted 100.0 100 Neutrophils % (Manual) 72 37.0-80.0 Band Neutrophils % (Manual) 18 Lymphocytes % (Manual) 4 L 10.0-50.0 Monocytes % (Manual) 6 0-12 Eosinophils % (Manual) 0 0-7 Basophils % (Manual) 0 0.0-2.0 Metamyelocytes % (manual) 0 Myelocytes % (Manual) 0 Promyelocytes % (Manual) 0 Blast Cells % (Manual) 0 Reactive Lymphocytes 0 Platelet Estimate Adequate Prothrombin Time 12.3 H 9.3-11.8 sec Prothrombin Time INR 1.18 H 0.9-1.15 Activated Partial Thromboplast Time 31.4 24.5-34.5 SEC Lactic Acid Level 1.7 0.4-2.0 mmol/L Urine Color Yellow Yellow Urine Clarity Clear Clear Urine pH 5.5 5.0-9.0 Urine Specific [place] 1.031 1.001-1.035 Urine Protein 1+ H Negative Urine Ketones 1+ H Negative Urine Blood 2+ H Negative /uL Urine Nitrite Negative Negative Urine Bilirubin Negative Negative Urine Urobilinogen Normal Negative mg/dL Urine Leukocyte Esterase Negative Negative /uL Urine RBC 27 0 - 3 /hpf Urine Microscopic WBC 3 0-3 /HPF Urine Squamous Epithelial Cells Few <5 /hpf Urine Bacteria Few H None Seen /hpf Urine Mucus Few None Seen Urine Glucose Trace Normal mg/dL Microbiology Date/Time Source Procedure Growth Status 07/13/24 11:15 Blood Blood Culture - Preliminary NO GROWTH AFTER 48 HOURS OF INCUBATION. Resulted Assessment Perforated appendicitis s/p cecectomy. Peritonitis. ALIREZA. SVT. Plan/Recommendation I agree with your ongoing assessment and care of plan. Telemetry reviewed. Echocardiogram. DVT and GI prophylactics. IV antibiotics as ordered. Additional plan as per the hospital course. A total of 45 minutes was spent reviewing the patient record, examining the patient, making a diagnostic and therapeutic plan, discussing this plan with medical personnel, following up on diagnostic studies and following the patient for clinical stability excluding any and all procedures. At least 50% of this time was spent in direct, [id number] contact. Plan discussed with: Patient DEQUAN WILSON MD Jul 15, 2024 12:01
--- NOTE | 2024-07-15 23:20 | DVHPN2 ---
Progress Note - Dictate Date Seen: Jul 15, 2024 Has the PT tested + for MRSA If YES, has PT been informed?: No Medical Necessity Reason Pt with a Central, PICC or Fol: Yes The following are medically ne: Lopez Catheter Reason for lopez catheter: Strict I&O Subjective Patient seen and examined at bedside. Breathing comfortably on room air. Overnight events reviewed. vital signs Vital Sign Date Time Temp Pulse Resp B/P (MAP) Pulse Ox O2 Delivery O2 Flow Rate FiO2 07/15/24 22:42 112 17 137/80 07/15/24 21:10 98.0 95 98.0 07/15/24 08:00 Room Air* 0 21 Total Intake and Output 07/14/24 07/14/24 07/15/24 15:00 23:00 07:00 Intake Total 450 ml 600 ml Output Total 875 ml 865 ml Balance -425 ml -265 ml medications Current Medications Medications Dose Ordered Sig/Danish Route Start Time Stop Time Status Last Admin Dose Admin Nitroglycerin 0.4 mg Q5MINP PRN SL 07/13/24 13:00 Hydromorphone HCl 0.5 mg Q10M PRN IV 07/13/24 13:15 07/13/24 13:56 Cancel Morphine Sulfate 2 mg Q4H PRN IV 07/13/24 13:15 07/13/24 17:16 Cancel Hydromorphone HCl 0.25 mg Q10M PRN IV 07/13/24 13:15 07/13/24 13:46 Cancel Morphine Sulfate 1 mg Q30M PRN IV 07/13/24 13:15 07/13/24 15:16 Cancel Morphine Sulfate 2 mg Q2HP PRN IV 07/13/24 15:30 07/15/24 22:42 2 MG Meropenem 50 ml @ 17 mls/hr Q8HR IV 07/13/24 22:00 07/15/24 22:17 17 MLS/HR Pantoprazole Sodium 40 mg DAILY IV 07/14/24 10:00 07/15/24 09:55 40 MG Sodium Chloride 1,000 ml @ 75 mls/hr [id number] IV 07/14/24 07:00 07/14/24 08:30 75 MLS/HR Enoxaparin Sodium 40 mg DAILY SC 07/14/24 10:00 07/15/24 09:55 40 MG Dextrose/Sodium Chloride 1,000 ml @ 75 mls/hr [id number] IV 07/15/24 17:00 07/15/24 18:25 75 MLS/HR objective Gen.: Patient lying in bed in no apparent distress. On room air. Head: Normocephalic, atraumatic. Eyes: EOMI/PERRLA. Ears: Normal hearing. Normal anatomy. Neck/trachea: Trachea midline, supple. Nose: Normal external anatomy. Mouth: Moist mucous membranes. Chest: Decreased air entry bilaterally. No wheezing or rhonchi. Cardiovascular: Positive S1, positive S2. Regular rate and rhythm. Abdomen: Positive bowel sounds in all 4 quadrants. Soft, non-tender, non- distended. : Deferred. Rectal: Deferred. Skin: Warm, dry. Intact. Extremities: 2+ radial pulses bilaterally. No lower extremity edema. Neuro: Awake, alert, oriented x3. No gross motor or sensory deficits. Cranial nerves II through XII intact. Gait not assessed. laboratory and microbiology Laboratory Tests 07/15/24 06:13 Test 07/15/24 06:13 Range/Units Serum Glucose 112 H 74-106 mg/dL Assessment/Plan Impression: Acute hypoxic respiratory failure Pulmonary edema Appendicitis, s/p laparoscopic appendectomy Obesity, BMI 36.3 Atelectasis Hyperkalemia Events: Breathing on room air. Supplemental oxygen PRN. CPAP at nighttime Surgery recs appreciated. Continue antibiotics Incentive spirometry WBC stable at 15.0. Blood cultures show no growth x48 hours Amiodarone drip Pain control Avoid oversedation Monitor LEEANN output- serosanguineous fluid IV fluids with [id number]-NS at 75 ml/hr Labs and imaging reviewed. Rest of plan as noted below. Plan: Supplemental oxygen PRN. Titrate to keep O2 sats above 92%. Lasix 20 mg IVP x1 given on 07/13 Continue antibiotics Incentive spirometry Follow up cultures Monitor renal function. Monitor electrolytes. Supplement as necessary. Monitor ins and outs. Patty for ins and outs. Monitor LEEANN output Surgery recommendations appreciated Pain control Avoid oversedation Diet and lifestyle modifications for weight reduction Obesity - complicates all care DVT prophylaxis - SCDs. Prognosis: Poor given patient's multiple co-morbidities. Rest of plan per hospitalist and other consultants. Thank you, Dr. Michael, for allowing me to participate in this patient's care. Further recommendations will depend on the patient's clinical course. Please do not hesitate to contact me if you have any questions or concerns. This medical document was created using an electronic medical record system with [employer] dictation system. Although these documentations are being carefully reviewed, there may still be some phonetic and typographical changes. The errors are purely typographical, due to imperfection on the software program, and do not reflect any compromise in the patient's medical care. Dietary Evaluation Review Comments: 1. Currently NPO due to post-op ileus 2. Await return of bowel function, consider prokinetic agent such as reglan 3. Once bowel function returns, advance to Regular diet as tolerated 4. If pt to be NPO >5 days consider TPN for nutritional support -> (Day 2) Expected Outcomes/Goals: Return of bowel fx, improved GI sx, adequate nutrition. Plan discussed with: Patient, Other (FEDERICO Steinberg) CARL PAYNE MD Jul 15, 2024 23:20
[2024-07-16] VITALS (8 sets, daily range): BP systolic 127–144; BP diastolic 67–84; PULSE 72–111; RESP 16–18; TEMP 97.6–99.1; O2SAT 92–95
--- NOTE | 2024-07-16 06:50 | DVHPN2 ---
Progress Note Date Seen: Jul 16, 2024 Has the PT tested + for MRSA If YES, has PT been informed?: No Medical Necessity Reason Pt with a Central, PICC or Fol: Yes The following are medically ne: Lopez Catheter Reason for lopez catheter: Strict I&O Subjective Patient reports: No new complaints Review of Systems: HEENT:Normal, CVS:Normal, RESPIRATORY:Normal, GI:Normal Objective vital signs Vital Sign Date Time Temp Pulse Resp B/P (MAP) Pulse Ox O2 Delivery O2 Flow Rate FiO2 07/16/24 06:20 95 18 128/75 07/16/24 05:00 97.8 94 97.8 07/15/24 20:00 Room Air* 0 21 Total Intake and Output 07/15/24 07/15/24 07/16/24 15:00 23:00 07:00 Intake Total 50 ml 120 ml Output Total 865 ml Balance 50 ml -745 ml medications Current Medications Medications Dose Ordered Sig/Danish Route Start Time Stop Time Status Last Admin Dose Admin Nitroglycerin 0.4 mg Q5MINP PRN SL 07/13/24 13:00 Hydromorphone HCl 0.5 mg Q10M PRN IV 07/13/24 13:15 07/13/24 13:56 Cancel Morphine Sulfate 2 mg Q4H PRN IV 07/13/24 13:15 07/13/24 17:16 Cancel Hydromorphone HCl 0.25 mg Q10M PRN IV 07/13/24 13:15 07/13/24 13:46 Cancel Morphine Sulfate 1 mg Q30M PRN IV 07/13/24 13:15 07/13/24 15:16 Cancel Morphine Sulfate 2 mg Q2HP PRN IV 07/13/24 15:30 07/16/24 06:20 2 MG Meropenem 50 ml @ 17 mls/hr Q8HR IV 07/13/24 22:00 07/16/24 06:16 17 MLS/HR Pantoprazole Sodium 40 mg DAILY IV 07/14/24 10:00 07/15/24 09:55 40 MG Sodium Chloride 1,000 ml @ 75 mls/hr [id number] IV 07/14/24 07:00 07/15/24 23:41 75 MLS/HR Enoxaparin Sodium 40 mg DAILY SC 07/14/24 10:00 07/15/24 09:55 40 MG Dextrose/Sodium Chloride 1,000 ml @ 75 mls/hr [id number] IV 07/15/24 17:00 07/15/24 18:25 75 MLS/HR Examination: GENERAL:Normal, HEENT:Normal, LUNGS:Normal, ABDOMEN:Abnormal laboratory and microbiology Laboratory Tests 07/15/24 06:13 Test 07/15/24 06:13 Range/Units Serum Glucose 112 H 74-106 mg/dL Problem List/Assessment/Plan Problem List/Assessment/Plan 1) Perforated appendicitis s/p cecectomy 2) Peritonitis 3) Afib plan; NPO, awaiting bowel fxn, continue IV Abx, IVF hydration, labs ordered for this AM, general surgery on board, started amio gtt yesterday for afib rvr with HR now better controlled, cardio consult pending, echo shows preserved EF, will follow along medically Plan discussed with: Other (n) Dietary Evaluation Review Comments: 1. Currently NPO due to post-op ileus 2. Await return of bowel function, consider prokinetic agent such as reglan 3. Once bowel function returns, advance to Regular diet as tolerated 4. If pt to be NPO >5 days consider TPN for nutritional support -> (Day 2) Expected Outcomes/Goals: Return of bowel fx, improved GI sx, adequate nutrition. MARTHA FERNANDEZ MD Jul 16, 2024 06:50
[2024-07-16 09:28] LABS: Basophils # (auto) 0.1 10 ^3/uL (0-0.2); Basophils % (auto) 0.7 % (0.0-2.0); Eosinophils # (auto) 0.3 10 ^3/uL (0-0.8); Eosinophils % (auto) 2.4 % (0.0-7.0); Hematocrit 46.6 % (41.0-53.0); Hemoglobin 15.5 g/dL (13.5-17.5); Lymphocytes # (auto) 1.6 10 ^3/uL (0.4-5.4); Lymphocytes % (auto) 15.1 % (10.0-50.0); Mean Corpuscular Hemoglobin 29.8 pg (28.0-32.0); Mean Corpuscular Hgb Conc. 33.3 g/dL (32.0-36.0); Mean Corpuscular Volume 89.6 fL (80.0-100.0); Monocytes # (auto) 0.7 10 ^3/uL (0-1.3); Monocytes % (auto) 6.6 % (0.0-12.0); Neutrophils # (auto) 8.1 10 ^3/uL (1.6-8.6); Neutrophils % (auto) 75.2 % (37.0-80.0); Nucleated Red Blood Cells % 0.1 %; Platelet Count (auto) 194 10^3/uL (140-450); Red Cell Distribution Width 14.1 % (11.8-14.3); White Blood Cell 10.7 10^3/uL (4.4-10.8)
[2024-07-16 09:39] LABS: Chloride 103 mmol/L (98-107); Potassium 4.5 mmol/L (3.5-5.1); Sodium 137 mmol/L (136-145)
[2024-07-16 09:40] LABS: Anion Gap 8 (5-15); Carbon Dioxide 26 mmol/L (20-31)
[2024-07-16 09:41] LABS: Calcium 8.9 mg/dL (8.7-10.4)
[2024-07-16 09:45] LABS: BUN/Creatinine Ratio 17.8 (10.0-20.0); Blood Urea Nitrogen 21 mg/dL (9-23); Glucose 103 mg/dL (74-106)
--- NOTE | 2024-07-16 11:24 | ECG ---
[facility] Test Date: 2024-07-15 Test Time: 11:51:04 Pat Name: NOREEN SCHULTZ Department: Respiratoy Room: 0249T A Gender: M Time Study Clerk: MICA : 1955 Requested By: MARTHA FERNANDEZ Order Number: [id number] Reading MD: Roshan Ortiz Measurements Intervals [place] Rate: 122 P: 77 SD: 145 QRS: -42 QRSD: 89 T: 12 QT: 310 QTc: 442 Interpretive Statements Fast sinus arrhythmia Left anterior fascicular block Low voltage, precordial leads Abnormal R-wave progression, early transition Electronically Signed On 07-16-2024 11:54:58 PDT by Roshan Ortiz Please click the below link to view image of tracing.
--- NOTE | 2024-07-16 11:24 | ECG ---
[facility] Test Date: 2024-07-15 Test Time: 11:52:10 Pat Name: NOREEN SCHULTZ Department: Respiratoy Room: 0249T A Gender: M Facility Environmental Technician: MICA : 1955 Requested By: MARTHA FERNANDEZ Order Number: [id number] Reading MD: Roshan Ortiz Measurements Intervals [place] Rate: 133 P: 46 NV: 134 QRS: -40 QRSD: 83 T: 15 QT: 307 QTc: 457 Interpretive Statements Sinus tachycardia Multiple premature complexes, vent & supraven Abnormal R-wave progression, early transition Inferior infarct, old Electronically Signed On 07-16-2024 11:55:00 PDT by Roshan Ortiz Please click the below link to view image of tracing.
--- NOTE | 2024-07-16 11:24 | ECG ---
[facility] Test Date: 2024-07-15 Test Time: 11:53:06 Pat Name: NOREEN SCHULTZ Department: Respiratoy Room: 0249T A Gender: M Manager Hair: MICA : 1955 Requested By: REGINALD MURRAY Order Number: [id number] Reading MD: Roshan Ortiz Measurements Intervals [place] Rate: 128 P: 53 VA: 142 QRS: -41 QRSD: 87 T: 7 QT: 311 QTc: 454 Interpretive Statements Sinus tachycardia Multiple premature complexes, vent & supraven Abnormal R-wave progression, early transition Inferior infarct, old Electronically Signed On 07-16-2024 11:55:02 PDT by Roshan Ortiz Please click the below link to view image of tracing.
--- NOTE | 2024-07-16 11:24 | ECG ---
[facility] Test Date: 2024-07-15 Test Time: 02:44:47 Pat Name: NOREEN SCHULTZ Department: Respiratoy Room: 0249T A Gender: M Plastic Technician: ELLY : 1955 Requested By: MARTHA FERNANDEZ Order Number: [id number] Reading MD: Roshan Ortiz Measurements Intervals [place] Rate: 125 P: 71 [place]: 177 QRS: -31 QRSD: 89 T: 14 QT: 307 QTc: 443 Interpretive Statements Sinus arrhythmia Multiform ventricular premature complexes Left axis deviation Baseline wander in lead(s) I,III,aVL Electronically Signed On 07-16-2024 11:54:50 PDT by Roshan Ortiz Please click the below link to view image of tracing.
[2024-07-16] MEDS: AMIODARONE HCL 200 MG TAB PO ONE (14:38)
--- NOTE | 2024-07-16 21:16 | DVHPN2 ---
Progress Note Date Seen: Jul 16, 2024 Has the PT tested + for MRSA If YES, has PT been informed?: No Medical Necessity Reason Pt with a Central, PICC or Fol: No Reason for lopez catheter: Strict I&O Subjective Review of Systems Pt seen earlier this morning. He feels well. Denies abdominal distention, N/V or BM. Admitted to passing flatus. Objective vital signs Vital Sign Date Time Temp Pulse Resp B/P (MAP) Pulse Ox O2 Delivery O2 Flow Rate FiO2 07/16/24 20:56 72 17 144/67 07/16/24 16:56 97.8 92 97.8 07/16/24 08:00 Room Air* 0 21 Total Intake and Output 07/15/24 07/15/24 07/16/24 15:00 23:00 07:00 Intake Total 50 ml 120 ml Output Total 865 ml 185 ml Balance 50 ml -745 ml -185 ml medications Current Medications Medications Dose Ordered Sig/Danish Route Start Time Stop Time Status Last Admin Dose Admin Nitroglycerin 0.4 mg Q5MINP PRN SL 07/13/24 13:00 Hydromorphone HCl 0.5 mg Q10M PRN IV 07/13/24 13:15 07/13/24 13:56 Cancel Morphine Sulfate 2 mg Q4H PRN IV 07/13/24 13:15 07/13/24 17:16 Cancel Hydromorphone HCl 0.25 mg Q10M PRN IV 07/13/24 13:15 07/13/24 13:46 Cancel Morphine Sulfate 1 mg Q30M PRN IV 07/13/24 13:15 07/13/24 15:16 Cancel Morphine Sulfate 2 mg Q2HP PRN IV 07/13/24 15:30 07/16/24 20:56 2 MG Meropenem 50 ml @ 17 mls/hr Q8HR IV 07/13/24 22:00 07/16/24 14:38 17 MLS/HR Pantoprazole Sodium 40 mg DAILY IV 07/14/24 10:00 07/16/24 10:00 40 MG Enoxaparin Sodium 40 mg DAILY SC 07/14/24 10:00 07/16/24 10:01 40 MG Dextrose/Sodium Chloride 1,000 ml @ 75 mls/hr [id number] IV 07/15/24 17:00 07/15/24 18:25 75 MLS/HR Amiodarone HCl 200 mg Q12HR PO 07/16/24 22:00 Examination AFVSS. Abdomen soft, obeses, ND and NT. Incisions C/D/I . Drain with ss fluid laboratory and microbiology Laboratory Tests 07/16/24 09:15 Test 07/16/24 09:15 Range/Units Serum Glucose 103 74-106 mg/dL Microbiology Date/Time Source Procedure Growth Status 07/13/24 11:15 Blood Blood Culture - Preliminary NO GROWTH AFTER 72 HOURS OF INCUBATION. Resulted Labs and/or images reviewed: Labs reviewed by me Problem List/Assessment/Plan Problems(with codes): (1) Peritonitis (2) Sepsis (3) Peritoneal abscess (4) Acute appendicitis Problem List/Assessment/Plan Acute perforated appendicitis with abdominopelvic abscess, peritonitis and sepsis. S/P Laparoscopic drainage of intraabdominal abscess and partial cecectomy. Continue IV Abx. Pt with underlying pulmonary condition. Suspect sleep apnea. Pulmonary medicine following. Ileus- Clinically resolved. CLD. IVF, DVT and GI prophylaxis. OOB and ambulation, PT and I/S. Continue supportive care. Plan discussed with: Patient My Orders My Orders Orders - ELVER DAS MD Procedure Category Date Status Time Clear Liq Diet DIET 07/16/24 Transmitted Breakfast ELVER DAS MD Jul 16, 2024 21:16
--- NOTE | 2024-07-16 21:22 | DVHPN2 ---
Progress Note - Dictate Date Seen: Jul 16, 2024 Has the PT tested + for MRSA If YES, has PT been informed?: No Medical Necessity Reason Pt with a Central, PICC or Fol: Yes The following are medically ne: Lopez Catheter Reason for lopez catheter: Strict I&O Subjective Patient was seen and evaluated in follow up. The patietn had low grade fevers overnight, T max of 99.5 F. Patient is now afebrile. LEEANN drain is draining 60 ml of serosanguineous fluid. Hematology and chemistry panel are WNL. Telemetry reviewed. vital signs Vital Sign Date Time Temp Pulse Resp B/P (MAP) Pulse Ox O2 Delivery O2 Flow Rate FiO2 07/16/24 09:00 97.9 97 16 132/78 (96) 93 97.9 07/16/24 08:00 Room Air* 0 21 Total Intake and Output 07/15/24 07/15/24 07/16/24 15:00 23:00 07:00 Intake Total 50 ml 120 ml Output Total 865 ml 185 ml Balance 50 ml -745 ml -185 ml medications Current Medications Medications Dose Ordered Sig/Danish Route Start Time Stop Time Status Last Admin Dose Admin Nitroglycerin 0.4 mg Q5MINP PRN SL 07/13/24 13:00 Hydromorphone HCl 0.5 mg Q10M PRN IV 07/13/24 13:15 07/13/24 13:56 Cancel Morphine Sulfate 2 mg Q4H PRN IV 07/13/24 13:15 07/13/24 17:16 Cancel Hydromorphone HCl 0.25 mg Q10M PRN IV 07/13/24 13:15 07/13/24 13:46 Cancel Morphine Sulfate 1 mg Q30M PRN IV 07/13/24 13:15 07/13/24 15:16 Cancel Morphine Sulfate 2 mg Q2HP PRN IV 07/13/24 15:30 07/16/24 06:20 2 MG Meropenem 50 ml @ 17 mls/hr Q8HR IV 07/13/24 22:00 07/16/24 06:16 17 MLS/HR Pantoprazole Sodium 40 mg DAILY IV 07/14/24 10:00 07/16/24 10:00 40 MG Sodium Chloride 1,000 ml @ 75 mls/hr [id number] IV 07/14/24 07:00 07/15/24 23:41 75 MLS/HR Enoxaparin Sodium 40 mg DAILY SC 07/14/24 10:00 07/16/24 10:01 40 MG Dextrose/Sodium Chloride 1,000 ml @ 75 mls/hr [id number] IV 07/15/24 17:00 07/15/24 18:25 75 MLS/HR objective GENERAL: Awake, alert, oriented. LUNGS: Clear. CARDIOVASCULAR: Heart sounds are good. ABDOMEN: Soft. laboratory and microbiology Laboratory Tests 07/16/24 09:15 Test 07/16/24 09:15 Range/Units Serum Glucose 103 74-106 mg/dL Problem List Perforated appendicitis s/p cecectomy. Peritonitis. ALIREZA. SVT. Assessment/Plan Continued all current supportive medical care. Echocardiogram. DVT and GI prophylactics. IV antibiotics as ordered. Additional plan as per the hospital course. Dietary Evaluation Review Comments: 1. Currently NPO due to post-op ileus 2. Await return of bowel function, consider prokinetic agent such as reglan 3. Once bowel function returns, advance to Regular diet as tolerated 4. If pt to be NPO >5 days consider TPN for nutritional support -> (Day 2) Expected Outcomes/Goals: Return of bowel fx, improved GI sx, adequate nutrition. Plan discussed with: Patient DEQUAN WILSON MD Jul 16, 2024 13:32
[2024-07-16] MEDS: AMIODARONE HCL 200 MG TAB PO SCH (21:32)
--- NOTE | 2024-07-16 23:35 | DVHPN2 ---
Progress Note - Dictate Date Seen: Jul 16, 2024 Has the PT tested + for MRSA If YES, has PT been informed?: No Medical Necessity Reason Pt with a Central, PICC or Fol: Yes The following are medically ne: Lopez Catheter Reason for lopez catheter: Strict I&O Subjective Patient seen and examined at bedside. Breathing comfortably on room air. Overnight events reviewed. vital signs Vital Sign Date Time Temp Pulse Resp B/P (MAP) Pulse Ox O2 Delivery O2 Flow Rate FiO2 07/16/24 21:00 97.9 72 17 144/67 (92) 95 97.9 07/16/24 20:00 Room Air* 0 21 Total Intake and Output 07/15/24 07/15/24 07/16/24 15:00 23:00 07:00 Intake Total 50 ml 120 ml Output Total 865 ml 185 ml Balance 50 ml -745 ml -185 ml medications Current Medications Medications Dose Ordered Sig/Danish Route Start Time Stop Time Status Last Admin Dose Admin Nitroglycerin 0.4 mg Q5MINP PRN SL 07/13/24 13:00 Hydromorphone HCl 0.5 mg Q10M PRN IV 07/13/24 13:15 07/13/24 13:56 Cancel Morphine Sulfate 2 mg Q4H PRN IV 07/13/24 13:15 07/13/24 17:16 Cancel Hydromorphone HCl 0.25 mg Q10M PRN IV 07/13/24 13:15 07/13/24 13:46 Cancel Morphine Sulfate 1 mg Q30M PRN IV 07/13/24 13:15 07/13/24 15:16 Cancel Morphine Sulfate 2 mg Q2HP PRN IV 07/13/24 15:30 07/16/24 20:56 2 MG Meropenem 50 ml @ 17 mls/hr Q8HR IV 07/13/24 22:00 07/16/24 14:38 17 MLS/HR Pantoprazole Sodium 40 mg DAILY IV 07/14/24 10:00 07/16/24 10:00 40 MG Enoxaparin Sodium 40 mg DAILY SC 07/14/24 10:00 07/16/24 10:01 40 MG Dextrose/Sodium Chloride 1,000 ml @ 75 mls/hr [id number] IV 07/15/24 17:00 07/15/24 18:25 75 MLS/HR Amiodarone HCl 200 mg Q12HR PO 07/16/24 22:00 07/16/24 21:32 200 MG Magnesium Hydroxide 30 ml DAILY PO 07/17/24 10:00 objective Gen.: Patient lying in bed in no apparent distress. On room air. Head: Normocephalic, atraumatic. Eyes: EOMI/PERRLA. Ears: Normal hearing. Normal anatomy. Neck/trachea: Trachea midline, supple. Nose: Normal external anatomy. Mouth: Moist mucous membranes. Chest: Decreased air entry bilaterally. No wheezing or rhonchi. Cardiovascular: Positive S1, positive S2. Regular rate and rhythm. Abdomen: Positive bowel sounds in all 4 quadrants. Soft, non-tender, non- distended. : Deferred. Rectal: Deferred. Skin: Warm, dry. Intact. Extremities: 2+ radial pulses bilaterally. No lower extremity edema. Neuro: Awake, alert, oriented x3. No gross motor or sensory deficits. Cranial nerves II through XII intact. Gait not assessed. laboratory and microbiology Laboratory Tests 07/16/24 09:15 Test 07/16/24 09:15 Range/Units Serum Glucose 103 74-106 mg/dL Assessment/Plan Impression: Acute hypoxic respiratory failure Pulmonary edema Appendicitis, s/p laparoscopic appendectomy Obesity, BMI 36.3 Atelectasis Hyperkalemia Events: Breathing on room air. Supplemental oxygen PRN. CPAP at nighttime Surgery recs appreciated. Continue antibiotics Incentive spirometry WBC within normal limits Blood cultures show no growth x72 hours On amiodarone PO. Pain control Avoid oversedation Monitor LEEANN output IV fluids with D5W-NS at 75 ml/hr GI/DVT prophylaxis Labs and imaging reviewed. Rest of plan as noted below. Plan: Supplemental oxygen PRN. Titrate to keep O2 sats above 92%. Continue antibiotics Incentive spirometry Follow up cultures Monitor renal function. Monitor electrolytes. Supplement as necessary. Monitor ins and outs. Patty for ins and outs. Monitor LEEANN output Surgery recommendations appreciated Pain control Avoid oversedation Diet and lifestyle modifications for weight reduction Obesity - complicates all care DVT prophylaxis - SCDs. Prognosis: Poor given patient's multiple co-morbidities. Rest of plan per hospitalist and other consultants. Thank you, Dr. Michael, for allowing me to participate in this patient's care. Further recommendations will depend on the patient's clinical course. Please do not hesitate to contact me if you have any questions or concerns. This medical document was created using an electronic medical record system with [employer] dictation system. Although these documentations are being carefully reviewed, there may still be some phonetic and typographical changes. The errors are purely typographical, due to imperfection on the software program, and do not reflect any compromise in the patient's medical care. Dietary Evaluation Review Comments: 1. Currently NPO due to post-op ileus 2. Await return of bowel function, consider prokinetic agent such as reglan 3. Once bowel function returns, advance to Regular diet as tolerated 4. If pt to be NPO >5 days consider TPN for nutritional support -> (Day 2) Expected Outcomes/Goals: Return of bowel fx, improved GI sx, adequate nutrition. Plan discussed with: Patient, Other (FEDERICO Steinberg) CARL PAYNE MD Jul 16, 2024 23:35
[2024-07-17 01:00] VITALS: BP 104/80; PULSE 92; RESP 17; TEMP 99; O2SAT 93
[2024-07-17 05:00] VITALS: BP 127/81; PULSE 99; RESP 17; TEMP 98.3; O2SAT 94
[2024-07-17] MEDS ORDERED: AMIO200T33 PO (06:53)
--- NOTE | 2024-07-17 06:59 | DVHDS2 ---
New Physician D'charge PN Admitting Diagnosis Admitting Diagnosis appendicitis Discharge Diagnosis perforated appendicitis s/p lap surgery SVT now NSR Operations or Procedures lap appendectomy drainage of abscess Reason(s) For Hospitalization Surgery Hospital Course 69 M admitted for perforated appendicitis. He was kept NPO and started on IV ABx. Surgery saw him and took to OR and he was noted to have perforated appendicitis and underwent cecectomy and drainage of abscess. There was evidence of peritonitis intraoperatively and after the surgery the pt was kept NPO until bowel Fxn and maintained on hydration and IV ABx. His BCx are negative and WBC nornalized with nml chem panel. He was advanced to clear liquid diet and is tolerating that. LEEANN drainage output has decreased day to day and patient feels well. Once cleared by surgery patient to be discharged home with outpt follow u p. His hospital course was complicated by SVT post-op and he was started on amio gtt and cardio saw him. Echo showed preserved EF and eventually the amio gtt was turned off and he was transitioned to PO amio. He will also follow up with cardiology outpt. [facility] to arrange for all outpt follow up and pt to dc home once cleared by surgery. Treatment Plan Discharge Condition of Discharge Good Disposition Home Discharge Instructions Diet: Cardiac 2g Na,low cholest Activity: No Restrictions, As Tolerated Medications: see med sheet Follow Up Care Follow Up/Referral: pcp surgery cardio Discharge Statement: "Patient was advised to return to the ER or call 911 if any headaches, dizziness, shortness of breath, chest pain, abdominal pain, bleeding, fevers, or worsening of medical condition. Patient was counseled about treatment plan, medications, possible side effects, patientverbalized understanding. All questions were answered to the best of my ability. This discharge took greater then 30 minutes in planning, reviewing documentation, counseling the patient, and discussing with other team members." MARTHA FERNANDEZ MD Jul 17, 2024 06:59
[2024-07-17] MEDS ORDERED: METR-344 PO (07:49)
[2024-07-17] MEDS ORDERED: AUG875T PO (07:49)
[2024-07-17 07:51] LABS: Basophils # (auto) 0.1 10 ^3/uL (0-0.2); Basophils % (auto) 0.7 % (0.0-2.0); Eosinophils # (auto) 0.3 10 ^3/uL (0-0.8); Eosinophils % (auto) 2.7 % (0.0-7.0); Hematocrit 47.9 % (41.0-53.0); Hemoglobin 15.9 g/dL (13.5-17.5); Lymphocytes # (auto) 1.7 10 ^3/uL (0.4-5.4); Lymphocytes % (auto) 14.3 % (10.0-50.0); Mean Corpuscular Hemoglobin 29.7 pg (28.0-32.0); Mean Corpuscular Hgb Conc. 33.3 g/dL (32.0-36.0); Mean Corpuscular Volume 89.4 fL (80.0-100.0); Monocytes # (auto) 0.8 10 ^3/uL (0-1.3); Monocytes % (auto) 7.1 % (0.0-12.0); Neutrophils # (auto) 8.9 10 ^3/uL (1.6-8.6); Neutrophils % (auto) 75.2 % (37.0-80.0); Nucleated Red Blood Cells % 0.2 %; Platelet Count (auto) 239 10^3/uL (140-450); Red Blood Cells 5.35 10^6/uL (4.5-5.90); Red Cell Distribution Width 13.8 % (11.8-14.3); White Blood Cell 11.8 10^3/uL (4.4-10.8)
--- NOTE | 2024-07-17 07:55 | DVHPN2 ---
Progress Note Date Seen: Jul 17, 2024 Has the PT tested + for MRSA If YES, has PT been informed?: No Medical Necessity Reason Pt with a Central, PICC or Fol: No Subjective Review of Systems Pt feels we.. Denies N/V or BM. However, he has been tolerating CLD and passing flatus. Denies CP palpitations or SOB. BMP normal. CBC pending Changes from previous H/P or p: No Changes Objective vital signs Vital Sign Date Time Temp Pulse Resp B/P (MAP) Pulse Ox O2 Delivery O2 Flow Rate FiO2 07/17/24 05:00 98.3 99 17 127/81 (96) 94 98.3 07/16/24 20:00 Room Air* 0 21 Total Intake and Output 07/16/24 07/16/24 07/17/24 14:59 22:59 06:59 Intake Total 760 ml 620 ml Output Total 50 ml Balance 710 ml 620 ml medications Current Medications Medications Dose Ordered Sig/Danish Route Start Time Stop Time Status Last Admin Dose Admin Nitroglycerin 0.4 mg Q5MINP PRN SL 07/13/24 13:00 Hydromorphone HCl 0.5 mg Q10M PRN IV 07/13/24 13:15 07/13/24 13:56 Cancel Morphine Sulfate 2 mg Q4H PRN IV 07/13/24 13:15 07/13/24 17:16 Cancel Hydromorphone HCl 0.25 mg Q10M PRN IV 07/13/24 13:15 07/13/24 13:46 Cancel Morphine Sulfate 1 mg Q30M PRN IV 07/13/24 13:15 07/13/24 15:16 Cancel Morphine Sulfate 2 mg Q2HP PRN IV 07/13/24 15:30 07/16/24 20:56 2 MG Meropenem 50 ml @ 17 mls/hr Q8HR IV 07/13/24 22:00 07/17/24 05:50 17 MLS/HR Pantoprazole Sodium 40 mg DAILY IV 07/14/24 10:00 07/16/24 10:00 40 MG Enoxaparin Sodium 40 mg DAILY SC 07/14/24 10:00 07/16/24 10:01 40 MG Dextrose/Sodium Chloride 1,000 ml @ 75 mls/hr [id number] IV 07/15/24 17:00 07/15/24 18:25 75 MLS/HR Amiodarone HCl 200 mg Q12HR PO 07/16/24 22:00 07/16/24 21:32 200 MG Magnesium Hydroxide 30 ml DAILY PO 07/17/24 10:00 Examination AFVSS. Abdomen soft, obese, ND and NT. Drain with serous fluid. Incisions C/D/I laboratory and microbiology Laboratory Tests 07/16/24 09:15 Test 07/16/24 09:15 Range/Units Serum Glucose 103 74-106 mg/dL Microbiology Date/Time Source Procedure Growth Status 07/13/24 11:15 Blood Blood Culture - Preliminary NO GROWTH AFTER 72 HOURS OF INCUBATION. Resulted Labs and/or images reviewed: Labs reviewed by me Problem List/Assessment/Plan Problems(with codes): (1) Peritonitis (2) Peritoneal abscess (3) Sepsis (4) Acute abdominal pain (5) Acute appendicitis Problem List/Assessment/Plan Acute perforated appendicitis with abdominopelvic abscess, peritonitis and sepsis. S/P Laparoscopic drainage of intraabdominal abscess and partial cecectomy. Continue IV Abx. Pt with underlying pulmonary condition. Suspect sleep apnea. Pulmonary medicine following. Ileus- Clinically resolved. Advance diet. If tolerates may be D/C after lunch. PO Abx. IVF, DVT and GI prophylaxis. OOB and ambulation, PT and I/S. Continue supportive care. Plan discussed with: Patient, Other (RN and Dr. Cisneros) My Orders My Orders Orders - ELVER DAS MD Procedure Category Date Status Time Magnesium Hydroxide PHA 07/17/24 In Process Suspension (Milk Of 10:00 D/C Br[place] ELIZABETH 07/16/24 In Process 21:11 Cardiac DIET 07/17/24 Transmitted Diet-2gna,Lofat,Lochol Breakfast Discharge DISCHARGE 07/17/24 Transmitted 07:46 Communication Order ORDERS 07/17/24 Verified 07:50 ELVER DAS MD Jul 17, 2024 07:55
[2024-07-17 08:00] VITALS: PULSE 96; PULSE 99; RESP 19; O2SAT 92
[2024-07-17 09:00] VITALS: BP 143/78; PULSE 96; RESP 19; TEMP 97.4; O2SAT 92
[2024-07-17] MEDS: MILK OF MAGNESIA 30ML SUSP PO SCH (10:06)
[2024-07-17 12:58] VITALS: BP 131/78; PULSE 100; RESP 18; TEMP 98.1; O2SAT 94
[2024-07-17 14:14] VITALS: BP 131/78; PULSE 100; RESP 18; TEMP 98.1; O2SAT 94
--- NOTE | 2024-07-17 21:33 | DVHPN2 ---
Progress Note - Dictate Date Seen: Jul 17, 2024 Has the PT tested + for MRSA If YES, has PT been informed?: No Medical Necessity Reason Pt with a Central, PICC or Fol: No Subjective Patient seen and examined at bedside. Breathing comfortably on room air. Overnight events reviewed. vital signs Vital Sign Date Time Temp Pulse Resp B/P (MAP) Pulse Ox O2 Delivery O2 Flow Rate FiO2 07/17/24 14:14 98.1 100 18 94 07/17/24 12:58 131/78 (95) 07/17/24 08:00 Room Air* 0 21 Total Intake and Output 07/16/24 07/16/24 07/17/24 15:00 23:00 07:00 Intake Total 760 ml 620 ml Output Total 50 ml Balance 710 ml 620 ml medications Current Medications Medications Dose Ordered Sig/Danish Route Start Time Stop Time Status Last Admin Dose Admin Hydromorphone HCl 0.5 mg Q10M PRN IV 07/13/24 13:15 07/13/24 13:56 Cancel Morphine Sulfate 2 mg Q4H PRN IV 07/13/24 13:15 07/13/24 17:16 Cancel Hydromorphone HCl 0.25 mg Q10M PRN IV 07/13/24 13:15 07/13/24 13:46 Cancel Morphine Sulfate 1 mg Q30M PRN IV 07/13/24 13:15 07/13/24 15:16 Cancel objective Gen.: Patient lying in bed in no apparent distress. On room air. Head: Normocephalic, atraumatic. Eyes: EOMI/PERRLA. Ears: Normal hearing. Normal anatomy. Neck/trachea: Trachea midline, supple. Nose: Normal external anatomy. Mouth: Moist mucous membranes. Chest: Decreased air entry bilaterally. No wheezing or rhonchi. Cardiovascular: Positive S1, positive S2. Regular rate and rhythm. Abdomen: Positive bowel sounds in all 4 quadrants. Soft, non-tender, non- distended. : Deferred. Rectal: Deferred. Skin: Warm, dry. Intact. Extremities: 2+ radial pulses bilaterally. No lower extremity edema. Neuro: Awake, alert, oriented x3. No gross motor or sensory deficits. Cranial nerves II through XII intact. Gait not assessed. laboratory and microbiology Laboratory Tests 07/17/24 06:50 07/16/24 09:15 Test 07/16/24 09:15 Range/Units Serum Glucose 103 74-106 mg/dL Assessment/Plan Impression: Acute hypoxic respiratory failure Pulmonary edema Appendicitis, s/p laparoscopic appendectomy Obesity, BMI 36.3 Atelectasis Hyperkalemia Events: Breathing on room air. Supplemental oxygen PRN. CPAP at nighttime Surgery recs appreciated. Continue antibiotics Incentive spirometry WBC trended up at 11.8 Blood cultures show no growth x72 hours On amiodarone PO. Pain control Avoid oversedation Monitor LEEANN output IV fluids with D5W-NS at 75 ml/hr GI/DVT prophylaxis Labs and imaging reviewed. Rest of plan as noted below. Plan: Supplemental oxygen PRN. Titrate to keep O2 sats above 92%. Continue antibiotics Incentive spirometry Follow up cultures Monitor renal function. Monitor electrolytes. Supplement as necessary. Monitor ins and outs. Brambila for ins and outs. Monitor LEEANN output Surgery recommendations appreciated Pain control Avoid oversedation Diet and lifestyle modifications for weight reduction Obesity - complicates all care DVT prophylaxis - SCDs. Prognosis: Poor given patient's multiple co-morbidities. Rest of plan per hospitalist and other consultants. Thank you, Dr. Michael, for allowing me to participate in this patient's care. Further recommendations will depend on the patient's clinical course. Please do not hesitate to contact me if you have any questions or concerns. This medical document was created using an electronic medical record system with [employer] dictation system. Although these documentations are being carefully reviewed, there may still be some phonetic and typographical changes. The errors are purely typographical, due to imperfection on the software program, and do not reflect any compromise in the patient's medical care. Plan discussed with: Patient, Other (FEDERICO Meza) CARL PAYNE MD Jul 17, 2024 21:33
--- NOTE | 2024-07-18 00:11 | DVHPN2 ---
Progress Note - Dictate Date Seen: Jul 17, 2024 Has the PT tested + for MRSA If YES, has PT been informed?: No Medical Necessity Reason Pt with a Central, PICC or Fol: No Subjective Patient was seen and evaluated in follow up. Patient has no new complaints at this time. Patient denies any cardiac symptoms. Patient is cardiac stable for discharge. Telemetry reviewed. vital signs Vital Sign Date Time Temp Pulse Resp B/P (MAP) Pulse Ox O2 Delivery O2 Flow Rate FiO2 07/17/24 09:00 97.4 96 19 143/78 (99) 92 97.4 07/16/24 20:00 Room Air* 0 21 Total Intake and Output 07/16/24 07/16/24 07/17/24 15:00 23:00 07:00 Intake Total 760 ml 620 ml Output Total 50 ml Balance 710 ml 620 ml medications Current Medications Medications Dose Ordered Sig/Danish Route Start Time Stop Time Status Last Admin Dose Admin Nitroglycerin 0.4 mg Q5MINP PRN SL 07/13/24 13:00 Hydromorphone HCl 0.5 mg Q10M PRN IV 07/13/24 13:15 07/13/24 13:56 Cancel Morphine Sulfate 2 mg Q4H PRN IV 07/13/24 13:15 07/13/24 17:16 Cancel Hydromorphone HCl 0.25 mg Q10M PRN IV 07/13/24 13:15 07/13/24 13:46 Cancel Morphine Sulfate 1 mg Q30M PRN IV 07/13/24 13:15 07/13/24 15:16 Cancel Morphine Sulfate 2 mg Q2HP PRN IV 07/13/24 15:30 07/16/24 20:56 2 MG Meropenem 50 ml @ 17 mls/hr Q8HR IV 07/13/24 22:00 07/17/24 05:50 17 MLS/HR Pantoprazole Sodium 40 mg DAILY IV 07/14/24 10:00 07/17/24 10:07 40 MG Enoxaparin Sodium 40 mg DAILY SC 07/14/24 10:00 07/17/24 10:06 40 MG Dextrose/Sodium Chloride 1,000 ml @ 75 mls/hr [id number] IV 07/15/24 17:00 07/17/24 10:10 75 MLS/HR Amiodarone HCl 200 mg Q12HR PO 07/16/24 22:00 07/17/24 10:07 200 MG Magnesium Hydroxide 30 ml DAILY PO 07/17/24 10:00 07/17/24 10:06 30 ML objective GENERAL: Awake, alert, oriented. LUNGS: Clear. CARDIOVASCULAR: Heart sounds are good. ABDOMEN: Soft. laboratory and microbiology Laboratory Tests 07/17/24 06:50 07/16/24 09:15 Test 07/16/24 09:15 Range/Units Serum Glucose 103 74-106 mg/dL Problem List Perforated appendicitis s/p cecectomy. Peritonitis. ALIREZA. SVT. Assessment/Plan Continued all current supportive medical care. DVT and GI prophylactics. IV antibiotics as ordered. Additional plan as per the hospital course. Plan discussed with: Patient DEQUAN WILSON MD Jul 17, 2024 12:47
== END 2024-07-17 15:30 | disposition home or self-care (01) | DRG 329 ==
LOC: ER 08:18 → OVERFLOW 12:47 → UNDOADMOB 12:47 → OVERFLOW 15:22 → OBSVTOIN 15:23 → CATH ICU 17:23 → TELE-EAST 07-14 11:45
PROVIDERS: ADMIT Student in an Organized Health Care Education/Training Program; ATTEND Student in an Organized Health Care Education/Training Program
PROC: 0DBH4ZZ Excision of Cecum, Percutaneous Endoscopic Approach (ICD-10-PCS; 2024-07-13)
PROC: 0W9G30Z Drainage of Peritoneal Cavity with Drainage Device, Percutaneous Approach (ICD-10-PCS; 2024-07-13)
PROC: 5A09357 Assistance with Respiratory Ventilation, Less than 24 Consecutive Hours, Continuous Positive Airway Pressure (ICD-10-PCS; 2024-07-13)
PROC: 0DTJ4ZZ Resection of Appendix, Percutaneous Endoscopic Approach (ICD-10-PCS; principal; 2024-07-13 13:58)
DX: K35.33 Acute appendicitis with perforation, localized peritonitis, and gangrene, with abscess (principal); R65.11 Systemic inflammatory response syndrome (SIRS) of non-infectious origin with acute organ dysfunction; I47.10 Supraventricular tachycardia, unspecified; J81.1 Chronic pulmonary edema; K56.7 Ileus, unspecified; J98.11 Atelectasis; N17.9 Acute kidney failure, unspecified; K91.89 Other postprocedural complications and disorders of digestive system; Z68.36 Body mass index [BMI] 36.0-36.9, adult; K76.0 Fatty (change of) liver, not elsewhere classified; E66.9 Obesity, unspecified; I10 Essential (primary) hypertension; E11.65 Type 2 diabetes mellitus with hyperglycemia; E87.5 Hyperkalemia; N40.0 Benign prostatic hyperplasia without lower urinary tract symptoms; N28.1 Cyst of kidney, acquired; K66.0 Peritoneal adhesions (postprocedural) (postinfection); K52.9 Noninfective gastroenteritis and colitis, unspecified; E86.0 Dehydration; I48.91 Unspecified atrial fibrillation; Z88.2 Allergy status to sulfonamides
CPT/HCPCS: 36415; 36600; 71045; 74176; 80048; 80053; 81001; 82805; 82962; 83605; 83735; 84132; 85007; 85025; 85027; 85610; 85730; 86850; 86900; 86901; 87040; 93005; 93306; 94660; 96361; 96374; 96375; 97163; 99291; G0378; J1100; J1815; J2003; J2185; J2250; J2405; J2470; J2704; J3490